=== PATIENT | female | born 2000 | race Caucasian/White ===

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

== ENCOUNTER 2020-01-02 16:38 | Emergency (ER) | payer OTHER, SELFPAY ==
--- OUTSIDE RECORDS SUMMARY | 2020-01-02 16:40 | XMS REPORT | Continuity of Care Document ---
:2000 Author Organization [facility] t Address [address] [place] [address] Dr. D[address] [place] [id number] Care Team Providers Name Role Phone Unavailable Unavailable Unavailable Problems This patient has no known problems. Allergies, Adverse Reactions, Alerts This patient has no known allergies or adverse reactions. Medications This patient has no known medications. Procedures This patient has no known procedures. Results This patient has no known results.
--- NOTE | 2020-01-02 17:21 | EDPHYS ---
Physician Documentation [facility] Name: Carmen Lea Age: 19 yrs Sex: Female : 2000 Arrival Date: 01/02/2020 Time: 16:41 Bed 25 Private MD: ED Physician Estevan Benavides HPI: 01/01 17:16 This 19 yrs old Female presents to ER via Ambulatory with complaints of Ear cp Pain. 17:16 The patient presents with pain, that is acute. The complaints affect the right ear and cp left ear. Onset: The symptoms/episode began/occurred yesterday. Associated signs and symptoms: Pertinent positives: sore throat, Pertinent negatives: fever, sinus trouble, vomiting. Severity of symptoms: in the emergency department the symptoms are unchanged despite home interventions. Historical: - Allergies: 16:49 No Known Allergies; ll1 - PSHx: 16:49 Appendectomy; ll1 - Immunization history:: Flu vaccine is not up to date. - Social history:: Smoking status: Patient denies any tobacco usage or history of. Patient/guardian denies using alcohol, street drugs. ROS: 17:17 Constitutional: Negative for body aches, chills, fever, poor PO intake. cp 17:17 ENT: Positive for ear pain, sore throat, Negative for drainage from ear(s), sinus congestion, difficulty swallowing, difficulty handling secretions. 17:17 Respiratory: Negative for cough, shortness of breath, wheezing. 17:17 Abdomen/GI: Negative for abdominal pain, nausea, vomiting, and diarrhea. 17:17 All other systems are negative. Exam: 17:18 Head/Face: Normocephalic, atraumatic. cp 17:18 Constitutional: The patient appears in no acute distress, alert, awake, non-toxic, well developed, well nourished. 17:18 Eyes: Periorbital structures: appear normal, Conjunctiva: normal, no exudate, no injection, Lids and lashes: appear normal, bilaterally. 17:18 ENT: External ear(s): are unremarkable, Ear canal(s): are normal, clear, TM's: bulging, is not appreciated, bilaterally, erythema, that is mild, bilaterally, Nose: is normal, Mouth: Lips: moist, Oral mucosa: moist, Posterior pharynx: Tonsils: bilaterally enlarged, with erythema, with exudate, Uvula: midline, erythema, that is mild. 17:18 Neck: ROM/movement: is normal, is supple, no meningismus, no nuchal rigidity. 17:18 Chest/axilla: Inspection: normal. 17:18 Cardiovascular: Rate: tachycardic. cp 17:18 Respiratory: the patient does not display signs of respiratory distress, Respirations: normal. 17:18 Abdomen/GI: Exam negative for discomfort, distension, guarding, Inspection: abdomen appears normal. Vital Signs: 16:47 BP 142 / 87; Pulse 100; Resp 18; Temp 99.5; Pulse Ox 98% ; Pain 7/10; ll1 MDM: 17:08 Patient medically screened. cp 17:18 Differential diagnosis: otitis media, otitis externa, tonsillitis, tonsillar abscess. cp 17:19 Data reviewed: vital signs, nurses notes, and as a result, I will discharge patient. cp 17:20 Counseling: I had a detailed discussion with the patient and/or guardian regarding: the cp historical points, exam findings, and any diagnostic results supporting the discharge/admit diagnosis, to return to the emergency department if symptoms worsen or persist or if there are any questions or concerns that arise at home. Administered Medications: No medications were administered Disposition: 17:30 Chart complete. cp 18:03 Co-signature as Attending Physician, Estevan Benavides MD I agree with the assessment and kdr plan of care. Disposition: 01/02/20 17:20 Discharged to Home. Impression: Acute tonsillitis, Otitis media, unspecified, bilateral. - Condition is Stable. - Discharge Instructions: Tonsillitis. - Prescriptions for Biaxin 500 mg Oral Tablet - take 1 tablet by ORAL route every 12 hours for 10 days; 20 tablet. Ibuprofen 800 mg Oral Tablet - take 1 tablet by ORAL route every 8 hours As needed take with food; 30 tablet. - Medication Reconciliation Form, Thank You Letter, Antibiotic Education, Prescription Opioid Use form. - Follow up: Private Physician; When: 1 - 2 days; Reason: Worsening of condition. - Problem is new. - Symptoms are unchanged. Signatures: Estevan Benavides MD MD [facility] Thad Tyler PA PA cp Magui Guzman RN RN Doretha Wu RN RN ll1 Corrections: (The following items were deleted from the chart) 17:27 17:20 01/02/2020 17:20 Discharged to Home. Impression: Acute tonsillitis; Otitis media, hb unspecified, bilateral. Condition is Stable. Forms are Medication Reconciliation Form, Thank You Letter, Antibiotic Education, Prescription Opioid Use. Follow up: Private Physician; When: 1 - 2 days; Reason: Worsening of condition. Problem is new. Symptoms are unchanged. cp
--- NOTE | 2020-01-02 17:21 | ER ---
Nurse's Notes [facility] Name: Carmen Lea Age: 19 yrs Sex: Female : 2000 Arrival Date: 01/02/2020 Time: 16:41 Bed 25 Private MD: Diagnosis: Acute tonsillitis;Otitis media, unspecified, bilateral Presentation: 01/01 16:47 Chief complaint: Patient states: Left ear pain since yesterday. No known fever, no ll1 drainage. Right ear pain started today. Coronavirus screen: Client denies travel out of the [place] in the last 14 days. At this time, the client does not indicate any symptoms associated with coronavirus-19. Ebola Screen: Patient denies travel to an Ebola-affected area in the 21 days before illness onset. Initial Sepsis Screen: Does the patient meet any 2 criteria? HR > 90 bpm. Risk Assessment: Do you want to hurt yourself or someone else? Patient reports no desire to harm self or others. Onset of symptoms was January 01, 2020. 16:47 Method Of Arrival: Ambulatory ll1 16:47 Acuity: LORENA 4 ll1 Historical: - Allergies: 16:49 No Known Allergies; ll1 - PSHx: 16:49 Appendectomy; ll1 - Immunization history:: Flu vaccine is not up to date. - Social history:: Smoking status: Patient denies any tobacco usage or history of. Patient/guardian denies using alcohol, street drugs. Screenin:14 Abuse screen: Denies threats or abuse. Denies injuries from another. Nutritional hb screening: No deficits noted. Tuberculosis screening: No symptoms or risk factors identified. Fall Risk None identified. Assessment: 17:14 General: Appears in no apparent distress. Behavior is calm, cooperative. Pain: Pain hb currently is 7 out of 10 on a pain scale. Neuro: Level of Consciousness is awake, alert, obeys commands, Oriented to person, place, time, situation. Cardiovascular: Capillary refill < 3 seconds Patient's skin is warm and dry. Respiratory: Respiratory effort is even, unlabored, Respiratory pattern is regular, symmetrical. GI: No signs and/or symptoms were reported involving the gastrointestinal system. : No signs and/or symptoms were reported regarding the genitourinary system. EENT: Reports pain since left ear pain. Derm: Skin is pink, warm \T\ dry. Musculoskeletal: No signs and/or symptoms reported regarding the musculoskeletal system. Vital Signs: 16:47 BP 142 / 87; Pulse 100; Resp 18; Temp 99.5; Pulse Ox 98% ; Pain 7/10; ll1 ED Course: 16:41 Patient arrived in ED. ds1 16:44 Thad Tyler PA is PHCP. cp 16:44 Estevan Benavides MD is Attending Physician. cp 16:48 Triage completed. ll1 16:49 Arm band placed on. ll1 17:14 Patient has correct armband on for positive identification. Bed in low position. Call hb light in reach. 17:15 Magui Guzman, RN is Primary Nurse. hb 17:27 No provider procedures requiring assistance completed. Patient did not have IV access hb during this emergency room visit. Administered Medications: No medications were administered Outcome: 17:20 Discharge ordered by MD. cp 17:27 Discharged to home ambulatory. hb 17:27 Condition: stable 17:27 Discharge instructions given to patient, Instructed on discharge instructions, follow up and referral plans. medication usage, Demonstrated understanding of instructions, follow-up care, medications, Prescriptions given X 2. 17:27 Patient left the ED. hb Signatures: Loretta Pete ds1 Thad Tyler PA PA cp Magui Guzman, RN RN Doretha Wu RN RN ll1
== END 2020-01-02 17:27 | disposition home or self-care (01) ==
LOC: ER 16:38
DX: H66.93 Otitis media, unspecified, bilateral (principal); J03.90 Acute tonsillitis, unspecified
CPT/HCPCS: 99282

== ENCOUNTER 2020-02-17 14:15 | Emergency (ER) | payer OTHER, SELFPAY ==
--- OUTSIDE RECORDS SUMMARY | 2020-02-17 14:24 | XMS REPORT | Continuity of Care Document ---
:2000 Author Organization [facility] t Address [address] [place] [address] Dr. Doshi [address] [place] [id number] Care Team Providers Name Role Phone Unavailable Unavailable Unavailable Problems This patient has no known problems. Allergies, Adverse Reactions, Alerts This patient has no known allergies or adverse reactions. Medications This patient has no known medications. Procedures This patient has no known procedures. Results This patient has no known results.
--- NOTE | 2020-02-17 14:43 | EDPHYS ---
Physician Documentation [facility] Name: Carmen Lea Age: 19 yrs Sex: Female : 2000 Arrival Date: 02/17/2020 Time: 14:19 Bed 2 Private MD: Thad Delgado HPI: 02/16 14:39 This 19 yrs old Female presents to ER via Ambulatory with complaints of kb Stepped on nail. 14:39 Pt reports she stepped on a nail and needs a tetanus shot. Puncture wound noted to ball kb of right foot with no FB remaining. 14:41 The patient or guardian reports the patient has a suspected foreign body, of the ball kb of right foot. The reported likely foreign body is a nail. Onset: The symptoms/episode began/occurred just prior to arrival. Current symptoms: none. Treatment Prior to Arrival: removed. The patient has not experienced similar symptoms in the past. The patient has not recently seen a physician. Historical: - Allergies: 14:30 No Known Allergies; ll1 - PSHx: 14:30 Appendectomy; ll1 - Immunization history:: Last tetanus immunization: unknown, Flu vaccine is not up to date. - Social history:: Smoking status: Patient denies any tobacco usage or history of. ROS: 14:41 Constitutional: Negative for fever, chills, and weight loss, Cardiovascular: Negative kb for chest pain, palpitations, and edema, Respiratory: Negative for shortness of breath, cough, wheezing, and pleuritic chest pain, Abdomen/GI: Negative for abdominal pain, nausea, vomiting, diarrhea, and constipation, Back: Negative for injury and pain, MS/Extremity: Negative for injury and deformity, Neuro: Negative for headache, weakness, numbness, tingling, and seizure. 14:41 Skin: Positive for puncture, of the ball of right foot. Exam: 14:39 Constitutional: This is a well developed, well nourished patient who is awake, alert, kb and in no acute distress. Head/Face: Normocephalic, atraumatic. Chest/axilla: Normal chest wall appearance and motion. Nontender with no deformity. No lesions are appreciated. Cardiovascular: Regular rate and rhythm with a normal S1 and S2. No gallops, murmurs, or rubs. Normal PMI, no JVD. No pulse deficits. Respiratory: Lungs have equal breath sounds bilaterally, clear to auscultation and percussion. No rales, rhonchi or wheezes noted. No increased work of breathing, no retractions or nasal flaring. Abdomen/GI: Soft, non-tender, with normal bowel sounds. No distension or tympany. No guarding or rebound. No evidence of tenderness throughout. MS/ Extremity: Pulses equal, no cyanosis. Neurovascular intact. Full, normal range of motion. Neuro: Awake and alert, GCS 15, oriented to person, place, time, and situation. Cranial nerves II-XII grossly intact. Motor strength 5/5 in all extremities. Sensory grossly intact. Cerebellar exam normal. Normal gait. 14:39 Skin: injury, puncture(s), that are superficial, of the ball of right foot. Vital Signs: 14:29 BP 131 / 63; Pulse 78; Resp 17; Temp 97.4; Pulse Ox 99% ; Weight 117.93 kg; Height 5 ll1 ft. 8 in. (172.72 cm); Pain 2/10; 14:29 Body Mass Index 39.53 (117.93 kg, 172.72 cm) ll1 MDM: 14:31 Patient medically screened. kb 14:35 Data reviewed: vital signs, nurses notes. Data interpreted: Pulse oximetry: on room air kb is 99 %. Interpretation: normal. Counseling: I had a detailed discussion with the patient and/or guardian regarding: the historical points, exam findings, and any diagnostic results supporting the discharge/admit diagnosis, the need for outpatient follow up, a family practitioner, to return to the emergency department if symptoms worsen or persist or if there are any questions or concerns that arise at home. 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 Exp: em 07/13/2022. Lot #: [id number]. } Route: IM; Site: left deltoid; 14:54 Follow up: Response: Medication administered at discharge. em Disposition: 02/17/20 14:42 Discharged to Home. Impression: Puncture wound without foreign body of foot. - Condition is Stable. - Discharge Instructions: Puncture Wound, [id number]. - Medication Reconciliation Form, Thank You Letter, Antibiotic Education, Prescription Opioid Use form. - Follow up: Emergency Department; When: As needed; Reason: Worsening of condition. Follow up: Private Physician; When: 2 - 3 days; Reason: Recheck today's complaints, Continuance of care, Re-evaluation by your physician. Addendum: 02/18/2020 18:03 Co-signature as Attending Physician, Thad Burton MD I agree with the assessment and c hua plan of care. Signatures: Dilcia Guillaume, ZOO DIRECTOR-C ZOO DIRECTOR-Thad Meyers MD MD cha Munoz, Edgar RN RN Doretha Kenney RN RN ll1 Corrections: (The following items were deleted from the chart) 02/16 14:54 14:42 02/17/2020 14:42 Discharged to Home. Impression: Puncture wound without foreign em body of foot. Condition is Stable. Forms are Medication Reconciliation Form, Thank You Letter, Antibiotic Education, Prescription Opioid Use. Follow up: Emergency Department; When: As needed; Reason: Worsening of condition. Follow up: Private Physician; When: 2 - 3 days; Reason: Recheck today's complaints, Continuance of care, Re-evaluation by your physician. kb
--- NOTE | 2020-02-17 14:43 | ER ---
Nurse's Notes [facility] Name: Carmen Lea Age: 19 yrs Sex: Female : 2000 Arrival Date: 02/17/2020 Time: 14:19 Bed 2 Private MD: Diagnosis: Puncture wound without foreign body of foot Presentation: 02/16 14:29 Chief complaint: Patient states: Nail went through her croc and punctured her right ll1 foot. No active bleeding. PMS intact. Coronavirus screen: Client denies travel out of the [place] in the last 14 days. At this time, the client does not indicate any symptoms associated with coronavirus-19. Ebola Screen: Patient denies travel to an Ebola-affected area in the 21 days before illness onset. Initial Sepsis Screen: Does the patient meet any 2 criteria? No. Patient's initial sepsis screen is negative. Does the patient have a suspected source of infection? Yes: Skin breakdown/wound. Risk Assessment: Do you want to hurt yourself or someone else? Patient reports no desire to harm self or others. Onset of symptoms was February 17, 2020. 14:29 Method Of Arrival: Ambulatory [facility] 14:29 Acuity: LORENA 4 ll1 Historical: - Allergies: 14:30 No Known Allergies; ll1 - PSHx: 14:30 Appendectomy; ll1 - Immunization history:: Last tetanus immunization: unknown, Flu vaccine is not up to date. - Social history:: Smoking status: Patient denies any tobacco usage or history of. Screenin:45 Abuse screen: Denies threats or abuse. Nutritional screening: No deficits noted. em Tuberculosis screening: No symptoms or risk factors identified. Fall Risk None identified. Assessment: 14:45 General: Appears in no apparent distress. comfortable, Behavior is calm, cooperative, em appropriate for age. Pain: Complains of pain in ball of right foot Pain currently is 2 out of 10 on a pain scale. Pain began 2 hours ago. Neuro: Level of Consciousness is awake, alert, obeys commands, Oriented to person, place, time, situation, Appropriate for age. Cardiovascular: Capillary refill < 3 seconds Patient's skin is warm and dry. Respiratory: Airway is patent Respiratory effort is even, unlabored, Respiratory pattern is regular, symmetrical. GI: Abdomen is round non-distended. Derm: Skin is intact, is healthy with good turgor, Skin is pink, warm \T\ dry. Musculoskeletal: Capillary refill < 3 seconds, Range of motion: intact in all extremities. Vital Signs: 14:29 BP 131 / 63; Pulse 78; Resp 17; Temp 97.4; Pulse Ox 99% ; Weight 117.93 kg; Height 5 ll1 ft. 8 in. (172.72 cm); Pain 2/10; 14:29 Body Mass Index 39.53 (117.93 kg, 172.72 cm) ll1 ED Course: 14:19 Patient arrived in ED. mr 14:20 Dilcia Guillaume FNP-C [facility]. kb 14:20 Thad Burton MD is Attending Physician. kb 14:30 Triage completed. ll1 14:31 Arm band placed on Patient placed. ll1 14:33 Rakesh Barrett, RN is Primary Nurse. em 14:45 Patient has correct armband on for positive identification. Call light in reach. em 14:52 No provider procedures requiring assistance completed. Patient did not have IV access em during this emergency room visit. 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 Exp: em 07/13/2022. Lot #: [id number]. } Route: IM; Site: left deltoid; 14:54 Follow up: Response: Medication administered at discharge. em Outcome: 14:42 Discharge ordered by MD. kb 14:52 Discharged to home ambulatory. em 14:52 Condition: good 14:52 Discharge instructions given to patient, Instructed on discharge instructions, follow up and referral plans. Demonstrated understanding of instructions, follow-up care. 14:54 Patient left the ED. em Signatures: Dilcia Guillaume FNP-C FNP-Ckb Alice Cooper mr Rakesh Barrett, RN RN em Doretha Wu RN RN [facility]
[2020-02-17] MEDS ORDERED: TETANUS & DIPHTHERIA TOX,ADULT 0.5 ML VIAL ONE (14:54)
[2020-02-17 14:59] VITALS: BP 131/63; TEMP 97.4; O2SAT 99
== END 2020-02-17 14:54 | disposition home or self-care (01) ==
LOC: ER 14:15
DX: S91.331A Puncture wound without foreign body, right foot, initial encounter (principal); W45.0XXA Nail entering through skin, initial encounter; Y93.9 Activity, unspecified; Y92.9 Unspecified place or not applicable; Z23 Encounter for immunization
CPT/HCPCS: 90471; 90714; 99283

== ENCOUNTER 2020-08-27 11:10 | Emergency (ER) | payer SELFPAY ==
--- OUTSIDE RECORDS SUMMARY | 2020-08-27 11:12 | XMS REPORT | Continuity of Care Document ---
:2000 Author Organization [facility] t Address [address] [place] [address] Dr. D[address] [place] [id number] Care Team Providers Name Role Phone Unavailable Unavailable Unavailable Problems This patient has no known problems. Allergies, Adverse Reactions, Alerts This patient has no known allergies or adverse reactions. Medications This patient has no known medications. Procedures This patient has no known procedures. Results This patient has no known results.
[2020-08-27 16:07] LABS: Absolute Lymphocytes (CBC) 0.9 K/uL (0.7-4.9); Basophils % 0.2 % (0-1.3); Hematocrit 38.5 % (36.0-45.0); Lymphocytes % 6.4 % (15.3-44.8); RBC Red Blood Cell Count 4.79 M/uL (3.86-4.86)
[2020-08-27 16:20] LABS: ALT/SGPT 35 U/L (12-78); AST/SGOT 15 U/L (15-37); Albumin 4.2 g/dL (3.4-5.0); Alkaline Phosphatase 78 U/L (45-117); BUN Blood Urea Nitrogen 8 mg/dL (7-18); Bicarbonate 25 mmol/L (21-32); Bilirubin Direct < 0.1 mg/dL (0-0.2); Bilirubin Total 0.4 mg/dL (0.2-1.0); Glucose Level 115 mg/dL (74-106); Lipase 48 U/L (73-393); Potassium 3.8 mmol/L (3.5-5.1); Protein, Total 8.6 g/dL (6.4-8.2); Sodium Level 137 mmol/L (136-145)
[2020-08-27 16:21] LABS: Urine Blood 3+ (Negative); Urine Glucose NEGATIVE (Negative); Urine Protein 1+ (Negative); Urine Specific Gravity 1.025 (1.005-1.030); Urine Specific Gravity/Preg 1.025 (1.005-1.030)
[2020-08-27] MEDS ORDERED: ONDANSETRON 4 MG/2 ML VIAL ONE (16:28)
[2020-08-27] MEDS ORDERED: NA CHLORIDE 0.9% 1,000 ML ONE (16:28)
--- NOTE | 2020-08-27 18:06 | RAD REPORT ---
EXAM DESCRIPTION: CT - Abdomen Pelvis W Contrast - 08/27/2020 5:47 pm CLINICAL HISTORY: Abdominal pain COMPARISON: 2019 TECHNIQUE: Computed axial tomography of the abdomen pelvis was obtained. 100 cc Isovue-300 was admin istered intravenously. Oral contrast was not requested which limits evaluation of bowel. All CT scans are performed using dose optimization technique as appropriate and may include automated exposure control or mA/KV adjustment according to patient size. FINDINGS: The liver, spleen, pancreas, adrenal and kidneys appear unremarkable. There is no evidence of diverticulitis. Appendectomy Calcified lung granulomas IMPRESSION: No acute abnormality is displayed.
--- NOTE | 2020-08-27 18:45 | EDPHYS ---
Physician Documentation [facility] Name: Carmen Lea Age: 20 yrs Sex: Female : 2000 Arrival Date: 08/27/2020 Time: 11:18 Bed 22 Private MD: ED Physician Shade Abbott HPI: 08/27 15:34 This 20 yrs old Female presents to ER via Ambulatory with complaints of jmm Abdominal Pain. 15:34 The patient presents with abdominal pain. Onset: The symptoms/episode began/occurred jmm today. The symptoms do not radiate. Associated signs and symptoms: Pertinent positives: nausea and vomiting, diarrhea. The symptoms are described as achy. The patient has not experienced similar symptoms in the past. Historical: - Allergies: 11:44 No Known Allergies; ll1 - PMHx: 11:44 None; ll1 - PSHx: 11:44 Appendectomy; ll1 - Immunization history:: Client reports having NOT received the Covid vaccine. Flu vaccine is not up to date. - Social history:: Smoking status: Patient denies any tobacco usage or history of. ROS: 15:34 Constitutional: Negative for fever, chills, and weight loss, Eyes: Negative for injury, jmm pain, redness, and discharge, ENT: Negative for injury, pain, and discharge, Neck: Negative for injury, pain, and swelling, Cardiovascular: Negative for chest pain, palpitations, and edema, Respiratory: Negative for shortness of breath, cough, wheezing, and pleuritic chest pain. 15:34 Abdomen/GI: Positive for abdominal pain, nausea and vomiting, diarrhea. 15:34 All other systems are negative. Exam: 15:34 Constitutional: This is a well developed, well nourished patient who is awake, alert, jmm and in no acute distress. Head/Face: atraumatic. Eyes: EOMI, no conjunctival erythema appreciated ENT: Moist Mucus Membranes Neck: Trachea midline, Supple Chest/axilla: Normal chest wall appearance and motion. Cardiovascular: Regular rate and rhythm. No edema appreciated Respiratory: Normal respirations, no respiratory distress appreciated 15:34 Back: Normal ROM Skin: General appearance color normal MS/ Extremity: Moves all extremities, no obvious deformities appreciated, no edema noted to the lower extremities Neuro: Awake and alert, normal gait Psych: Behavior is normal, Mood is normal, Patient is cooperative and pleasant 15:34 Abdomen/GI: Inspection: abdomen appears normal, Bowel sounds: normal, Palpation: soft, nontender, in all quadrants. Vital Signs: 11:42 BP 130 / 81; Pulse 55; Resp 17; Temp 98.2; Pulse Ox 98% ; Weight 117.93 kg; Height 5 ll1 ft. 8 in. (172.72 cm); Pain 7/10; 17:52 Pulse 68; Resp 15; Pulse Ox 98% on R/A; Pain 0/10; ss 11:42 Body Mass Index 39.53 (117.93 kg, 172.72 cm) ll1 MDM: 15:34 Patient medically screened. [facility] 18:43 Data reviewed: vital signs, nurses notes. Counseling: I had a detailed discussion with janeen the patient and/or guardian regarding: the historical points, exam findings, and any diagnostic results supporting the discharge/admit diagnosis, lab results, radiology results, the need for outpatient follow up, to return to the emergency department if symptoms worsen or persist or if there are any questions or concerns that arise at home. ED course: Patient's symptoms alleviated in the ED. Patient given strict return precautions. Patient understood and agrees with the plan of care. . 08/27 15:41 Order name: Basic Metabolic Panel; Complete Time: 16:29 [facility] 08/27 15:41 Order name: CBC with Diff [facility] 08/27 15:41 Order name: Hepatic Function; Complete Time: 16:29 [facility] 08/27 15:41 Order name: Lipase; Complete Time: 16:29 [facility] 08/27 15:42 Order name: COVID-19 : Document "Date of Symptom Onset" if Symptomatic. [facility] 08/27 15:41 Order name: IV Saline Lock; Complete Time: 16:03 [facility] 08/27 16:14 Order name: Urine Dipstick--Ancillary (enter results); Complete Time: 16:29 08/27 16:14 Order name: Urine --Ancillary (enter results); Complete Time: 16:29 08/27 16:29 Order name: CT Abd/Pelvis - IV Contrast Only; Complete Time: 18:26 [facility] 08/27 16:51 Order name: SARS-COV-2 RT PCR; Complete Time: 17:02 [facility] 08/27 15:41 Order name: Labs collected and sent; Complete Time: 16:03 [facility] 08/27 15:42 Order name: Urine Dipstick-Ancillary (obtain specimen); Complete Time: 16:15 [facility] 08/27 15:43 Order name: Urine Test (obtain specimen); Complete Time: 16:16 [facility] Administered Medications: 16:15 Drug: NS 0.9% 1000 ml Route: IV; Rate: 1 bolus; Site: left antecubital; ss 18:50 Follow up: IV Status: Completed infusion; IV Intake: 1000ml 16:15 Drug: Zofran (Ondansetron) 4 mg Route: IVP; Site: left antecubital; ss 17:53 Follow up: Response: No adverse reaction ss Disposition: 08/27/20 18:44 Discharged to Home. Impression: Vomiting, Diarrhea, unspecified. - Condition is Stable. - Discharge Instructions: Food Choices to Help Relieve Diarrhea, Adult, Diarrhea, Adult, Nausea and Vomiting, Adult. - Prescriptions for Zofran ODT 4 mg Oral tablet,disintegrating - place 1 tablet by TRANSLINGUAL route every 4-6 hours; 20 tablet. Bentyl 20 mg Oral Tablet - take 2 tablet by ORAL route every 6 hours As needed; 40 tablet. - Medication Reconciliation Form, Thank You Letter, Antibiotic Education, Prescription Opioid Use form. - Follow up: Private Physician; When: 2 - 3 days; Reason: Recheck today's complaints, Continuance of care, Re-evaluation by your physician. Addendum: 08/29/2020 10:04 Co-signature as Attending Physician, Shade Abbott MD I agree with the assessment and t w4 plan of care. Signatures: Dispatcher [employer] [facility] Jimmy Max PA PA jmm Smirch, Shelby, RN RN ss Shade Abbott MD MD tw4 Doretha Wu RN RN ll1 Corrections: (The following items were deleted from the chart) 08/27 16:11 15:43 CORONAVIRUS ordered. EDMO EDMS 17:19 17:06 Abdomen ordered. EDMO EDMS 18:51 18:44 08/27/2020 18:44 Discharged to Home. Impression: Vomiting; Diarrhea, unspecified. ss Condition is Stable. Forms are Medication Reconciliation Form, Thank You Letter, Antibiotic Education, Prescription Opioid Use. Follow up: Private Physician; When: 2 - 3 days; Reason: Recheck today's complaints, Continuance of care, Re-evaluation by your physician. janeen
--- NOTE | 2020-08-27 18:45 | ER ---
Nurse's Notes [facility] Name: Carmen Lea Age: 20 yrs Sex: Female : 2000 Arrival Date: 08/27/2020 Time: 11:18 Bed 22 Private MD: Diagnosis: Vomiting;Diarrhea, unspecified Presentation: 08/27 11:42 Chief complaint: Patient states: Upper abd pain with N/V/D for 1 day. No fever. ll1 Coronavirus screen: Client denies travel out of the [place] in the last 14 days. At this time, the client does not indicate any symptoms associated with coronavirus-19. Coronavirus screen: cough unrelated to allergies, runny nose, Client presents with at least one sign or symptom that may indicate coronavirus-19. Standard/surgical mask placed on the client. Ebola Screen: Patient denies travel to an Ebola-affected area in the 21 days before illness onset. Initial Sepsis Screen: Does the patient meet any 2 criteria? No. Patient's initial sepsis screen is negative. Does the patient have a suspected source of infection? Yes: Acute abdominal pain. Risk Assessment: Do you want to hurt yourself or someone else? Patient reports no desire to harm self or others. Onset of symptoms was August 27, 2020. 11:42 Method Of Arrival: Ambulatory ll1 11:42 Acuity: LORENA 3 ll1 Historical: - Allergies: 11:44 No Known Allergies; ll1 - PMHx: 11:44 None; ll1 - PSHx: 11:44 Appendectomy; ll1 - Immunization history:: Client reports having NOT received the Covid vaccine. Flu vaccine is not up to date. - Social history:: Smoking status: Patient denies any tobacco usage or history of. Screenin:06 Abuse screen: Denies threats or abuse. Denies injuries from another. Nutritional ss screening: No deficits noted. Tuberculosis screening: Never had TB. Fall Risk None identified. Assessment: 15:15 General: Appears in no apparent distress. comfortable, Behavior is calm, cooperative. ss Pain: Complains of pain in left upper quadrant Pain currently is 7 out of 10 on a pain scale. Quality of pain is described as crampy, Pain began this morning Is intermittent. Neuro: Level of Consciousness is awake, alert, obeys commands, Oriented to person, place, time, situation. Respiratory: Airway is patent Respiratory effort is even, unlabored, Respiratory pattern is regular, symmetrical. GI: Abdomen is non-distended, Bowel sounds present X 4 quads. Abd is soft and non tender X 4 quads. Reports. : Denies burning with urination, urinary frequency. EENT: Nares are clear Oral mucosa is moist. Derm: Skin is pink, warm \T\ dry. normal. Musculoskeletal: Circulation, motion, and sensation intact. Range of motion: intact in all extremities, Swelling absent. 16:15 Reassessment: No changes from previously documented assessment. Patient is alert, ss oriented x 3, equal unlabored respirations, skin warm/dry/pink. 17:40 Reassessment: Patient appears in no apparent distress at this time. Patient and/or ss family updated on plan of care and expected duration. Pain level reassessed. Pt is back from CT at this time. Awaiting results. 17:52 Reassessment: Patient appears in no apparent distress at this time. Patient and/or ss family updated on plan of care and expected duration. Pain level reassessed. Patient is alert, oriented x 3, equal unlabored respirations, skin warm/dry/pink. Patient denies pain at this time. Patient states feeling better. Patient states symptoms have improved. Vital Signs: 11:42 BP 130 / 81; Pulse 55; Resp 17; Temp 98.2; Pulse Ox 98% ; Weight 117.93 kg; Height 5 ll1 ft. 8 in. (172.72 cm); Pain 7/10; 17:52 Pulse 68; Resp 15; Pulse Ox 98% on R/A; Pain 0/10; ss 11:42 Body Mass Index 39.53 (117.93 kg, 172.72 cm) ll1 ED Course: 11:18 Patient arrived in ED. ds1 11:44 Triage completed. ll1 11:44 Arm band placed on. ll1 15:05 Jimmy Max PA is PHCP. [facility] 15:05 Shade Abbott MD is Attending Physician. [facility] 15:06 Azucena Her, BOO is Primary Nurse. ss 15:06 Patient has correct armband on for positive identification. Bed in low position. Call ss light in reach. 15:50 Initial lab(s) drawn, by me, sent to lab. COVID swab sent to lab. Inserted saline lock: jp3 20 gauge in left antecubital area, using aseptic technique. Blood collected. 17:28 CT Abd/Pelvis - IV Contrast Only In Process Unspecified. EDMS 18:50 No provider procedures requiring assistance completed. IV discontinued, intact, ss bleeding controlled, No redness/swelling at site. Pressure dressing applied. Administered Medications: 16:15 Drug: NS 0.9% 1000 ml Route: IV; Rate: 1 bolus; Site: left antecubital; ss 18:50 Follow up: IV Status: Completed infusion; IV Intake: 1000ml ss 16:15 Drug: Zofran (Ondansetron) 4 mg Route: IVP; Site: left antecubital; ss 17:53 Follow up: Response: No adverse reaction ss Intake: 18:50 IV: 1000ml; Total: 1000ml. ss Outcome: 18:44 Discharge ordered by . m 18:50 Discharged to home ambulatory. ss 18:50 Condition: improved 18:50 Discharge instructions given to patient, Instructed on discharge instructions, follow up and referral plans. medication usage, Demonstrated understanding of instructions, follow-up care, medications, Prescriptions given X 2. 18:51 Patient left the ED. ss Signatures: Dispatcher [employer] EDMS Jimmy Mxa PA PA jmm Sanford, Demi ds1 Azucena Her, BOO RN Philip Toscano jp3 Doretha Wu RN RN ll1
[2020-08-27 19:01] VITALS: BP 130/81; TEMP 98.2; O2SAT 98
[2020-08-27 19:06] LABS: Blood Morphology Comment NOTED (NOT SEEN); Platelet Estimate ADEQ; White Blood Cell Scan OK (OK)
[2020-08-27 19:07] LABS: Anisocytosis 1+; Poikilocytosis 1+
== END 2020-08-27 18:51 | disposition home or self-care (01) ==
LOC: ER 11:10
DX: R19.7 Diarrhea, unspecified (principal); Z20.822 Contact with and (suspected) exposure to COVID-19
CPT/HCPCS: 36415; 74177; 80048; 80076; 81003; 81025; 83690; 85025; 96361; 96374; 99284; J2405; J7030; Q9967; U0003

== ENCOUNTER 2021-01-05 14:24 | Emergency (ER) | payer SELFPAY ==
--- OUTSIDE RECORDS SUMMARY | 2021-01-05 14:26 | XMS REPORT | Continuity of Care Document ---
:2000 Author Organization [facility] t Address [address] [place] [address] Dr. Doshi [address] [place] [id number] Care Team Providers Name Role Phone Unavailable Unavailable Unavailable Problems This patient has no known problems. Allergies, Adverse Reactions, Alerts This patient has no known allergies or adverse reactions. Medications This patient has no known medications. Procedures This patient has no known procedures. Results This patient has no known results.
[2021-01-05 16:43] LABS: Urine Blood 2+ (Negative); Urine Glucose Negative (Negative); Urine Protein 1+ (Negative); Urine Specific Gravity 1.015 (1.005-1.030)
[2021-01-05] MEDS ORDERED: AZITHROMYCIN 250 MG TAB ONE (18:54)
[2021-01-05] MEDS ORDERED: WATER FOR INJ,STERILE 10 ML ONE (18:54)
[2021-01-05] MEDS ORDERED: CEFTRIAXONE 1000 MG/VIAL ONE (18:54)
[2021-01-05 19:14] LABS: Urine Amorphous Sediment 1+ /HPF (NONE SEEN); Urine Bacteria >50 /HPF (<20); Urine RBC >50 /HPF (NONE SEEN)
[2021-01-05 19:19] LABS: Urine Specific Gravity/Preg 1.015 (1.005-1.030)
--- NOTE | 2021-01-05 19:25 | ER ---
Nurse's Notes [facility] Name: Carmen Lae Age: 20 yrs Sex: Female : 2000 Arrival Date: 01/05/2021 Time: 14:28 Bed 14 Private MD: Diagnosis: Cervicitis Presentation: 01/05 14:50 Chief complaint: Patient states: is having some vaginal pains that feels like she put a iw tampon in wrong, mireille hurts to sit down, started last night and worse this morning , no injury , feels like there is something hard inside her but there is no way it can be a tampon, feels like there may be and abscess or cyst, feels the know inside her labia, has not had her cycle in a month. Coronavirus screen: At this time, the client does not indicate any symptoms associated with coronavirus-19. Ebola Screen: Patient negative for fever greater than or equal to 101.5 degrees Fahrenheit, and additional compatible Ebola Virus Disease symptoms Patient denies exposure to infectious person. Patient denies travel to an Ebola-affected area in the 21 days before illness onset. No symptoms or risks identified at this time. Initial Sepsis Screen: Does the patient meet any 2 criteria? No. Patient's initial sepsis screen is negative. Does the patient have a suspected source of infection? No. Patient's initial sepsis screen is negative. Risk Assessment: Do you want to hurt yourself or someone else? Patient reports no desire to harm self or others. Onset of symptoms was January 05, 2021. 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 - Social history:: Smoking status: . Screenin:26 Abuse screen: Denies threats or abuse. Denies injuries from another. Nutritional iw screening: No deficits noted. Tuberculosis screening: No symptoms or risk factors identified. 19:12 Fall Risk None identified. ss Assessment: 16:25 General: Appears in no apparent distress. Behavior is calm, cooperative. Pain: iw Complains of pain in groin. Neuro: Level of Consciousness is awake, alert, obeys commands, Oriented to person, place, time, situation, Moves all extremities. Full function. Respiratory: Respiratory effort is even, unlabored, Respiratory pattern is regular. 19:12 Reassessment: awaiting swab results prior to disposition. Pt has no complaints at this ss time. Vital Signs: 14:50 BP 131 / 62; Pulse 85; Resp 16; Temp 97.4; Pulse Ox 100% ; Weight 107.95 kg; Height 5 iw ft. 8 in. (172.72 cm); Pain 8/10; 14:50 Body Mass Index 36.19 (107.95 kg, 172.72 cm) iw ED Course: 14:28 Patient arrived in ED. ds1 14:53 Triage completed. iw 14:54 Arm band placed on. iw 16:21 Francheska Delacruz is Primary Nurse. kh1 16:25 Nilson Irvin NP is PHCP. pm1 16:25 Thad Burton MD is Attending Physician. pm1 18:21 Assist provider with pelvic exam: Set up pelvic tray. Performed by Nilson Irvin NP Specimens sent to lab. Patient tolerated well. Patient did not have IV access during this emergency room visit. 19:12 Patient has correct armband on for positive identification. Bed in low position. Call ss light in reach. Administered Medications: 18:39 Drug: Rocephin (cefTRIAXone) 1 grams Route: IM; Site: right gluteus; iw 19:12 Follow up: Response: No adverse reaction ss 18:39 Drug: AZITHromycin 1 grams Route: PO; iw 19:12 Follow up: Response: No adverse reaction ss Outcome: 19:25 Discharge ordered by . pm1 19:32 Discharged to home ambulatory. ss 19:32 Condition: good 19:32 Discharge instructions given to patient, Instructed on discharge instructions, follow up and referral plans. medication usage, Demonstrated understanding of instructions, follow-up care. 19:33 Patient left the ED. Signatures: Loretta Pete ds1 Jessica Howell RN RN Azucena Her RN RN Nilson Irvin NP UNIVERSITY LECTURER pm1 Francheska Delacruz [facility] Corrections: (The following items were deleted from the chart) 14:54 14:50 Pulse 85bpm; Resp 16bpm; Pulse Ox 100%; Temp 97.4F; 107.95 kg; Height 5 ft. 8 iw in.; BMI: 36.1; Pain 8/10; iw
--- NOTE | 2021-01-05 19:25 | EDPHYS ---
Physician Documentation [facility] Name: Carmen Lea Age: 20 yrs Sex: Female : 2000 Arrival Date: 01/05/2021 Time: 14:28 Bed 14 Private MD: ED Physician Thad Burton HPI: 01/05 16:36 This 20 yrs old Female presents to ER via Ambulatory with complaints of pm1 Vaginal Pain. 16:36 The patient presents with Vaginal pain and discharge. pm1 16:36 Onset: The symptoms/episode began/occurred last night. Modifying factors: The symptoms pm1 are alleviated by nothing, the symptoms are aggravated by nothing. Associated signs and symptoms: Pertinent negatives: dysuria, fever, Abdominal pain. Severity of symptoms: in the emergency department the symptoms are actually worse. The patient is sexually active, reportedly has a single partner, does not use protection during intercourse. The patient has not experienced similar symptoms in the past. The patient has not recently seen a physician. Patient reports mild discharge for the past few days. While in the ER waiting room, when she went to the restroom reported more discharge. Patient reports sensation of foreign body like sensation to vaginal area. Patient reports pain is more prominent on right side, labial area. 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 - Social history:: Smoking status: . ROS: 16:36 Positive for vaginal discharge, Negative for urinary symptoms, pelvic pain, flank pm1 pain. 16:36 Constitutional: Negative for fever, chills, and weight loss, Cardiovascular: Negative for chest pain, palpitations, and edema, Respiratory: Negative for shortness of breath, cough, wheezing, and pleuritic chest pain, Abdomen/GI: Negative for abdominal pain, nausea, vomiting, diarrhea, and constipation, Back: Negative for injury and pain, MS/Extremity: Negative for injury and deformity, Skin: Negative for injury, rash, and discoloration. 16:36 All other systems are negative. Exam: 16:36 Constitutional: This is a well developed, well nourished patient who is awake, alert, pm1 and in no acute distress. Head/Face: Normocephalic, atraumatic. 16:36 Back: No spinal tenderness. No costovertebral tenderness. Full range of motion. Skin: Warm, dry with normal turgor. Normal color with no rashes, no lesions, and no evidence of cellulitis. MS/ Extremity: Pulses equal, no cyanosis. Neurovascular intact. Full, normal range of motion. 16:36 Eyes: Exam is negative for acute changes, Extraocular movements: no acute changes, Conjunctiva: no acute changes, no injection. 16:36 ENT: Exam is negative for acute changes, Mouth: Lips: normal, Oral mucosa: normal, pink and intact, moist. 16:36 Cardiovascular: Exam negative for acute changes, Rate: normal, Rhythm: regular, Pulses: no pulse deficits are appreciated. 16:36 Respiratory: Exam negative for acute changes, respiratory distress, shortness of breath. 16:36 Abdomen/GI: Exam negative for acute changes, Inspection: abdomen appears normal, Palpation: abdomen is soft and non-tender, in all quadrants. 16:36 Neuro: Exam negative for acute changes, Orientation: is normal, Mentation: is normal, Motor: is normal, moves all fours. 18:25 : Pelvic Exam: External exam: is normal, no appreciated Bartholin's cyst, no pm1 erythema, not excoriated, no evidence of foreign body, no lesions, no ulcerations, no warts seen, Speculum exam: cervicitis present, bimanual exam reveals normal findings, no cervical motion tenderness, no adnexa tenderness or masses bilaterally, discharge, yellow, Azucena RN Simulation Engineer. Vital Signs: 14:50 BP 131 / 62; Pulse 85; Resp 16; Temp 97.4; Pulse Ox 100% ; Weight 107.95 kg; Height 5 iw ft. 8 in. (172.72 cm); Pain 8/10; 14:50 Body Mass Index 36.19 (107.95 kg, 172.72 cm) iw MDM: 16:25 Patient medically screened. pm1 18:59 Data reviewed: vital signs. Data interpreted: Pulse oximetry: on room air is 100 %. pm1 Interpretation: normal. 19:23 Counseling: I had a detailed discussion with the patient and/or guardian regarding: the pm1 historical points, exam findings, and any diagnostic results supporting the discharge/admit diagnosis, lab results, the need for outpatient follow up, an OB/Gyne specialist, to return to the emergency department if symptoms worsen or persist or if there are any questions or concerns that arise at home. 19:23 ED course: Without any complaints of dysuria. Urine micro results likely result of pm1 contamination from vaginal discharge. Do not suspect UTI, likely cervicitis from sexual transmitted infection. Patient treated with Rocephin and azithromycin in the ER. And patient informed results for GC probe in 2 days. 01/05 16:43 Order name: Urine Microscopic Only; Complete Time: 19:18 pm1 01/05 16:43 Order name: Urine Dipstick-Ancillary [facility] 01/05 16:43 Order name: Urine --Ancillary (enter results); Complete Time: 19:23 eb 01/05 18:28 Order name: Wet Prep; Complete Time: 19:23 pm1 01/05 18:28 Order name: GC (GONORR/CHLAMYDIA) Probe [facility] 01/05 19:15 Order name: Urine Culture [facility] 01/05 16:30 Order name: Urine Dipstick-Ancillary (obtain specimen); Complete Time: 17:23 pm1 01/05 16:30 Order name: Urine Test (obtain specimen); Complete Time: 17:23 pm1 01/05 16:30 Order name: Pelvic Exam Setup; Complete Time: 17:23 pm1 Administered Medications: 18:39 Drug: Rocephin (cefTRIAXone) 1 grams Route: IM; Site: right gluteus; iw 19:12 Follow up: Response: No adverse reaction ss 18:39 Drug: AZITHromycin 1 grams Route: PO; iw 19:12 Follow up: Response: No adverse reaction ss Disposition: 01/06 08:33 Co-signature as Attending Physician, Thad Burton MD I agree with the assessment and jagjit plan of care. Disposition Summary: 01/05/21 19:25 Discharge Ordered Location: Home pm1 Problem: new pm1 Symptoms: have improved pm1 Condition: Stable pm1 Diagnosis - Cervicitis pm1 Followup: pm1 - With: Emergency Department - When: As needed - Reason: Worsening of condition Followup: pm1 - With: Private Physician - When: 2 - 3 days - Reason: Recheck today's complaints, Continuance of care, Re-evaluation by your physician Discharge Instructions: - Discharge Summary Sheet pm1 - Cervicitis pm1 Forms: - Medication Reconciliation Form pm1 - Thank You Letter pm1 - Antibiotic Education pm1 - Prescription Opioid Use pm1 Signatures: Dispatcher [employer] Thad Orta MD MD cha Williams, Irene, BOO RN iw Nilson Irvin NP ELEVATOR CONSTRUCTOR HYDRAULIC pm1 Azucena Her RN ss
[2021-01-05 19:40] VITALS: BP 131/62; TEMP 97.4; O2SAT 100
[2021-01-09 05:06] LABS: C.trachomatis RNA,TMA Detected (Not Detected)
== END 2021-01-05 19:33 | disposition home or self-care (01) ==
LOC: ER 14:24
DX: N72 Inflammatory disease of cervix uteri (principal)
CPT/HCPCS: 81003; 81015; 81025; 87086; 87088; 87210; 87490; 87590; 96372; 99283

== ENCOUNTER 2021-02-14 22:06 | Emergency (ER) | payer SELFPAY ==
--- NOTE | 2021-02-14 23:11 | EDPHYS ---
Physician Documentation [facility] Name: Carmen Lea Age: 20 yrs Sex: Female : 2000 Arrival Date: 02/14/2021 Time: 22:11 Bed 12 Private MD: ED Physician René Ybarra HPI: 02/14 22:41 This 20 yrs old Female presents to ER via Wheelchair with complaints of Ankle pkl Injury, Ankle Swelling. 22:41 The patient presents with an injury, pain, that is acute. The complaints affect the pkl left ankle. Onset: The symptoms/episode began/occurred today. Context: resulted from a mis-step by the patient. Associated signs and symptoms: The patient has no apparent associated signs or symptoms. 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 - Social history:: Patient/guardian denies using alcohol, street drugs, IV drugs, caffeine, over the counter diet medications, tobacco products, Smoking status: Patient/guardian denies using tobacco products. ROS: 22:41 Eyes: Negative for injury, pain, redness, and discharge, ENT: Negative for injury, pkl pain, and discharge, Neck: Negative for injury, pain, and swelling, Cardiovascular: Negative for chest pain, palpitations, and edema, Respiratory: Negative for shortness of breath, cough, wheezing, and pleuritic chest pain, Abdomen/GI: Negative for abdominal pain, nausea, vomiting, diarrhea, and constipation, Back: Negative for injury and pain, : Negative for injury, bleeding, discharge, and swelling, Neuro: Negative for headache, weakness, numbness, tingling, and seizure. 22:41 MS/extremity: Positive for pain, swelling, tenderness, of the left ankle. Exam: 22:41 Head/Face: Normocephalic, atraumatic. Eyes: Pupils equal round and reactive to light, pkl extra-ocular motions intact. Lids and lashes normal. Conjunctiva and sclera are non-icteric and not injected. Cornea within normal limits. Periorbital areas with no swelling, redness, or edema. ENT: Nares patent. No nasal discharge, no septal abnormalities noted. Tympanic membranes are normal and external auditory canals are clear. Oropharynx with no redness, swelling, or masses, exudates, or evidence of obstruction, uvula midline. Mucous membranes moist. Neck: Trachea midline, no thyromegaly or masses palpated, and no cervical lymphadenopathy. Supple, full range of motion without nuchal rigidity, or vertebral point tenderness. No Meningismus. Chest/axilla: Normal chest wall appearance and motion. Nontender with no deformity. No lesions are appreciated. Cardiovascular: Regular rate and rhythm with a normal S1 and S2. No gallops, murmurs, or rubs. Normal PMI, no JVD. No pulse deficits. Respiratory: Lungs have equal breath sounds bilaterally, clear to auscultation and percussion. No rales, rhonchi or wheezes noted. No increased work of breathing, no retractions or nasal flaring. Abdomen/GI: Soft, non-tender, with normal bowel sounds. No distension or tympany. No guarding or rebound. No evidence of tenderness throughout. Back: No spinal tenderness. No costovertebral tenderness. Full range of motion. Skin: Warm, dry with normal turgor. Normal color with no rashes, no lesions, and no evidence of cellulitis. Neuro: Awake and alert, GCS 15, oriented to person, place, time, and situation. Cranial nerves II-XII grossly intact. Motor strength 5/5 in all extremities. Sensory grossly intact. Cerebellar exam normal. Normal gait. 22:41 Musculoskeletal/extremity: Extremities: grossly normal except: noted in the left ankle: pain, swelling, tenderness. Vital Signs: 22:30 BP 118 / 63; Pulse 88; Resp 20; Temp 99.0; Pulse Ox 99% on R/A; cc4 Procedures: 23:03 Splinting: Splint applied to left ankle using short leg posterior splint. applied by [facility] nurse. Examined by me, post splint application: neurovascular intact, 2+ distal pulses palpable, brisk capillary refill noted, Patient tolerated well. MDM: 22:28 Patient medically screened. pk 23:03 Data reviewed: vital signs, nurses notes, radiologic studies, plain films. [facility] 02/14 22:40 Order name: Ankle Left 3 View XRAY [facility] 02/14 23:12 Order name: Splint - Ankle: Posterior; Complete Time: 23:33 pk Administered Medications: No medications were administered Disposition Summary: 02/14/21 23:10 Discharge Ordered Location: Home pkl Problem: new pkl Symptoms: have improved pkl Condition: Stable pkl Diagnosis - Sprain left ankle pkl Followup: pkl - With: Kevin Oakley MD - When: 2 - 3 days - Reason: Re-evaluation by your physician Discharge Instructions: - Discharge Summary Sheet pkl Forms: - Medication Reconciliation Form pkl - Thank You Letter pkl - Antibiotic Education pkl - Work release form pkl - Prescription Opioid Use pkl Prescriptions: - Diclofenac Sodium 75 mg Oral tablet,delayed release (DR/EC) - take 1 tablet by ORAL route 2 times per day; 20 tablet; Refills: 0, Product pkl Selection Permitted Signatures: Dispatcher [employer] EDMS René Ybarra MD MD pkl Sonal Perkins RN RN cc4 Corrections: (The following items were deleted from the chart) 22:59 22:30 PSHx: Appendectomy; cc4 cc4 23:33 23:12 Crutches ordered. pkl cc4
--- NOTE | 2021-02-14 23:11 | ER ---
Nurse's Notes [facility] Name: Carmen Lea Age: 20 yrs Sex: Female : 2000 Arrival Date: 02/14/2021 Time: 22:11 Bed 12 Private MD: Diagnosis: Sprain left ankle Presentation: 02/14 22:30 Method Of Arrival: Wheelchair cc4 22:30 Chief complaint: Patient states: Reports wearing heels today at work \\T\\ "rolling" left cc4 ankle around noon today with increasing pain; reports pain left foot "8" at present time; small amt. edema noted left dorsal foot; palpable left pedal pulse; moving left toes upon command; dorsiflexing left foot with no difficulty upon command. Coronavirus screen: Vaccine status: Patient reports being unvaccinated. Client denies travel out of the [place] in the last 14 days. At this time, the client does not indicate any symptoms associated with coronavirus-19. Ebola Screen: Patient negative for fever greater than or equal to 101.5 degrees Fahrenheit, and additional compatible Ebola Virus Disease symptoms No symptoms or risks identified at this time. Onset of symptoms was February 14, 2021 at 12:00. 22:30 Acuity: LORENA 4 cc4 22:30 Initial Sepsis Screen: Does the patient meet any 2 criteria? No. Patient's initial cc4 sepsis screen is negative. Does the patient have a suspected source of infection? No. Patient's initial sepsis screen is negative. Risk Assessment: Do you want to hurt yourself or someone else? Patient reports no desire to harm self or others. Triage Assessment: 22:30 General: Appears in no apparent distress. Behavior is calm, cooperative. General: cc4 Appears in no apparent distress. Behavior is calm, cooperative. Pain: Complains of pain in left foot Pain does not radiate. Pain currently is 8 out of 10 on a pain scale. Quality of pain is described as sharp, Pain began 12:00 today. Is intermittent, lasting a few minutes. 22:30 Musculoskeletal: Swelling present in left foot Reports pain in left foot since . Pain cc4 is 8 out of 10 on a pain scale. 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 - Social history:: Patient/guardian denies using alcohol, street drugs, IV drugs, caffeine, over the counter diet medications, tobacco products, Smoking status: Patient/guardian denies using tobacco products. Screenin:30 Abuse screen: Denies threats or abuse. Nutritional screening: No deficits noted. cc4 Tuberculosis screening: No symptoms or risk factors identified. Fall Risk None identified. Assessment: 22:30 General: Appears in no apparent distress. Behavior is calm, cooperative. Pain: cc4 Complains of pain in left foot Pain does not radiate. Pain currently is 8 out of 10 on a pain scale. Quality of pain is described as sharp, Pain began Reports "rolling" left ankle/foot today \\T\\ noon \\T\\ work with increasing intermittent "sharp" pain throughout day; small amt. edema noted dorsum left foot; < 3 sec cap refill noted left toes; moving left toes with no difficulty; dorsiflexing left foot slowly. Vital Signs: 22:30 BP 118 / 63; Pulse 88; Resp 20; Temp 99.0; Pulse Ox 99% on R/A; cc4 ED Course: 22:11 Patient arrived in ED. ja2 22:28 René Ybarra MD is Attending Physician. pkl 22:30 Bed in low position. Call light in reach. Side rails up X 1. cc4 22:32 Sonal Perkins, BOO is Primary Nurse. cc4 22:45 Triage completed. cc4 22:53 Ankle Left 3 View XRAY Sent. cc4 22:53 Arm band placed on. cc4 22:56 Ankle Left 3 View XRAY In Process Unspecified. EDMS 23:00 No provider procedures requiring assistance completed. cc4 23:09 Kevin Oakley MD is Referral Physician. pkl 23:30 Patient did not have IV access during this emergency room visit. cc4 Administered Medications: No medications were administered Outcome: 22:30 Condition: good cc4 23:10 Discharge ordered by . pkl 23:25 Discharged to home via wheelchair. cc4 23:25 Condition: good 23:25 Discharge instructions given to patient, Instructed on discharge instructions, follow up and referral plans. medication usage, Demonstrated understanding of instructions, follow-up care, medications, Prescriptions given X 1. 23:51 Patient left the ED. cc4 Signatures: Dispatcher [employer] René Ortega MD MD pkl Alexander, Jessica ja2 Cooper, Christie, RN RN cc4 Corrections: (The following items were deleted from the chart) 22:59 22:30 PSHx: Appendectomy; cc4 cc4
[2021-02-14 23:56] VITALS: BP 118/63; TEMP 99; O2SAT 99
--- NOTE | 2021-02-15 08:38 | RAD REPORT ---
EXAM DESCRIPTION: RAD - Ankle Left 3 View - 02/14/2021 10:57 pm CLINICAL HISTORY: fall COMPARISON: No comparisons FINDINGS: Mild soft tissue swelling is evident. Small posterior calcaneal spur. No acute fracture se en.
== END 2021-02-14 23:51 | disposition home or self-care (01) ==
LOC: ER 22:06
DX: S93.402A Sprain of unspecified ligament of left ankle, initial encounter (principal); Z72.0 Tobacco use
CPT/HCPCS: 99283

== ENCOUNTER 2021-11-06 15:54 | Emergency (ER) | payer SELFPAY ==
[2021-11-06] MEDS ORDERED: dexAMETHasone 10 MG/ML VIAL ONE (17:47)
--- NOTE | 2021-11-06 17:55 | ER ---
Nurse's Notes [facility] Name: Carmen Lea Age: 21 yrs Sex: Female : 2000 Arrival Date: 11/06/2021 Time: 15:58 Bed 20 Private MD: Diagnosis: Rash and other nonspecific skin eruption Presentation: 11/06 16:06 Chief complaint: Patient states: she was at work and she started feeling a tightness in ap3 her lips. That is when she noticed her lips and other areas of her face were swelling and she was developing hives. Patient states she believes she is developing hives on her scalp as well. patient reports this has happened before but it has been a while. Coronavirus screen: At this time, the client does not indicate any symptoms associated with coronavirus-19. Ebola Screen: No symptoms or risks identified at this time. Onset: The symptoms/episode began/occurred suddenly, 1 hour(s) ago. Anaphylaxis evaluation, angioedema. Initial Sepsis Screen: Does the patient meet any 2 criteria? No. Patient's initial sepsis screen is negative. Does the patient have a suspected source of infection? No. Patient's initial sepsis screen is negative. Risk Assessment: Do you want to hurt yourself or someone else? Patient reports no desire to harm self or others. Onset of symptoms was November 06, 2021 at 15:00. Care prior to arrival: Medication(s) given: benadryl. 16:06 Method Of Arrival: Ambulatory ap3 16:06 Acuity: LORENA 3 ap3 Triage Assessment: 16:11 General: Appears in no apparent distress. Behavior is calm, cooperative, appropriate ap3 for age. Pain: Denies pain. Neuro: Level of Consciousness is awake, alert, obeys commands. Cardiovascular: Respiratory: Airway is patent Respiratory effort is even, unlabored, Respiratory pattern is regular, symmetrical. Derm:. Derm: Rash noted that is red, on face. Musculoskeletal: Swelling present in face and mouth. 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 - Social history:: Smoking status: Patient denies any tobacco usage or history of. Screenin:12 Abuse screen: Denies threats or abuse. Nutritional screening: No deficits noted. ap3 Tuberculosis screening: No symptoms or risk factors identified. Fall Risk None identified. Assessment: 17:00 General: Appears comfortable, Behavior is cooperative. Pain: Denies pain. Neuro: Level ww of Consciousness is awake, alert, obeys commands, Oriented to person, place, time, situation, Moves all extremities. Gait is steady. Cardiovascular: Capillary refill < 3 seconds Patient's skin is warm and dry. Respiratory: Airway is patent Respiratory effort is even, unlabored, Respiratory pattern is regular, symmetrical. GI: No signs and/or symptoms were reported involving the gastrointestinal system. : No signs and/or symptoms were reported regarding the genitourinary system. EENT: Eyes swelling present. lips swelling. Derm: No signs and/or symptoms reported regarding the dermatologic system. 18:20 Reassessment: Patient appears in no apparent distress at this time. No changes from ww previously documented assessment. Patient and/or family updated on plan of care and expected duration. Pain level reassessed. Patient is alert, oriented x 3, equal unlabored respirations, skin warm/dry/pink. Vital Signs: 16:06 BP 140 / 65; Pulse 97; Resp 17; Temp 97.7; Pulse Ox 100% ; Weight 108.86 kg; Height 5 ap3 ft. 8 in. (172.72 cm); 18:20 BP 123 / 54; Pulse 71; Resp 18; Pulse Ox 99% on R/A; ww 16:06 Body Mass Index 36.49 (108.86 kg, 172.72 cm) ap3 ED Course: 15:58 Patient arrived in ED. ja2 15:59 Jimmy Max PA is PHCP. [facility] 15:59 Thad Burton MD is Attending Physician. jmm 16:10 Triage completed. ap3 16:13 Arm band placed on right wrist. ap3 17:15 Patient has correct armband on for positive identification. Bed in low position. Call ww light in reach. Side rails up X 1. Pulse ox on. NIBP on. Warm blanket given. 17:30 Karla Muhammad, BOO is Primary Nurse. ww 18:21 No provider procedures requiring assistance completed. Patient did not have IV access ww during this emergency room visit. Administered Medications: 17:45 Drug: Decadron (dexamethasone) 10 mg Route: IM; Site: right gluteus; ww Outcome: 17:54 Discharge ordered by . janeen 18:21 Discharged to home ambulatory. ww 18:21 Condition: stable 18:21 Discharge instructions given to patient, Instructed on discharge instructions, follow up and referral plans. medication usage, safety practices, Demonstrated understanding of instructions, follow-up care, medications, Prescriptions given X 2. 18:24 Patient left the ED. ww Signatures: Jimmy Max PA PA jmm Prokisch, Amanda, BOO RN Nighat Rogers Whitney, RN RN ww
--- NOTE | 2021-11-06 17:55 | EDPHYS ---
Physician Documentation [facility] Name: Carmen Lea Age: 21 yrs Sex: Female : 2000 Arrival Date: 11/06/2021 Time: 15:58 Bed 20 Private MD: ED Physician Thad Burton HPI: 11/06 16:13 This 21 yrs old Female presents to ER via Ambulatory with complaints of Facial jmm Swelling, Hives. 16:13 The patient's rash thought to be caused by an unknown cause. The rash is located on the jmm face and mouth. Onset: The symptoms/episode began/occurred gradually. Associated signs and symptoms: Pertinent positives: swelling of lips, Pertinent negatives: fever, swelling of throat, swelling of tongue. This is a 21 year old female with no chronic medical conditions that presents to the ED with complaints of itching scalp and lip swelling beginning earlier today. Patient states taking benadryl with little relief. Denies sensation of throat swelling, denies vomiting. . 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 - Social history:: Smoking status: Patient denies any tobacco usage or history of. ROS: 16:13 Constitutional: Negative for fever, chills, and weight loss, Cardiovascular: Negative jmm for chest pain, palpitations, and edema, Respiratory: Negative for shortness of breath, cough, wheezing, and pleuritic chest pain. 16:13 Skin: Positive for rash. 16:13 All other systems are negative. Exam: 16:13 Constitutional: This is a well developed, well nourished patient who is awake, alert, jmm and in no acute distress. 16:13 Eyes: EOMI, no conjunctival erythema appreciated 16:13 Neck: Trachea midline, Supple Chest/axilla: Normal chest wall appearance and motion. Cardiovascular: Regular rate and rhythm. No edema appreciated Respiratory: Normal respirations, no respiratory distress appreciated Abdomen/GI: Non distended, soft Back: Normal ROM Skin: General appearance color normal MS/ Extremity: Moves all extremities, no obvious deformities appreciated, no edema noted to the lower extremities Neuro: Awake and alert Psych: Behavior is normal, Mood is normal, Patient is cooperative and pleasant 16:13 Constitutional: The patient appears in no acute distress, alert, awake. 16:13 Head/face: hives noted to the forehead. 16:13 ENT: Posterior pharynx: is normal, no pharyngeal edema appreciated. Vital Signs: 16:06 BP 140 / 65; Pulse 97; Resp 17; Temp 97.7; Pulse Ox 100% ; Weight 108.86 kg; Height 5 ap3 ft. 8 in. (172.72 cm); 18:20 BP 123 / 54; Pulse 71; Resp 18; Pulse Ox 99% on R/A; ww 16:06 Body Mass Index 36.49 (108.86 kg, 172.72 cm) ap3 MDM: 16:13 Patient medically screened. jagjit 17:52 Data reviewed: vital signs, nurses notes. Counseling: I had a detailed discussion with janeen the patient and/or guardian regarding: the historical points, exam findings, and any diagnostic results supporting the discharge/admit diagnosis, the need for outpatient follow up, to return to the emergency department if symptoms worsen or persist or if there are any questions or concerns that arise at home. ED course: Patient is alert and non toxic in appearance in the ED. No signs of resp distress. I do not suspect anaphylaxis. . Administered Medications: 17:45 Drug: Decadron (dexamethasone) 10 mg Route: IM; Site: right gluteus; ww Disposition Summary: 11/06/21 17:54 Discharge Ordered Location: Home [facility] Condition: Stable [facility] Diagnosis - Rash and other nonspecific skin eruption [facility] Followup: [facility] - With: Private Physician - When: 2 - 3 days - Reason: Recheck today's complaints, Continuance of care, Re-evaluation by your physician Discharge Instructions: - Discharge Summary Sheet janeen hartman Forms: - Medication Reconciliation Form minnie - Thank You Letter janeen - Antibiotic Education [facility] - Prescription Opioid Use [facility] Prescriptions: - Hydroxyzine HCl 25 mg Oral Tablet - take 1 tablet by ORAL route every 6 hours As needed; 30 tablet; Refills: 0, [facility] Product Selection Permitted - Prednisone 20 mg Oral Tablet - take 3 tablets by ORAL route once daily for 5 days; 15 tablet; Refills: 0, jmm Product Selection Permitted Signatures: Thad Burton MD MD cha Mickail, Joel, PA PA jmm Prokisch, Amanda RN RN ap3 Karla Muhammad RN RN ww
[2021-11-06 18:35] VITALS: TEMP 97.7
[2021-11-06 18:37] VITALS: BP 123/54; O2SAT 99
== END 2021-11-06 18:24 | disposition home or self-care (01) ==
LOC: ER 15:54
DX: R21 Rash and other nonspecific skin eruption (principal); R22.9 Localized swelling, mass and lump, unspecified
CPT/HCPCS: J1100

== ENCOUNTER 2022-12-26 14:42 | Emergency (ER) | payer OTHER, SELFPAY ==
--- OUTSIDE RECORDS SUMMARY | 2022-12-26 14:45 | XMS REPORT | Continuity of Care Document ---
:2000 Author Organization [facility] t Address [address] [place] [id number] Care Team Providers Name Role Phone GLENDA ATKINSONTONYATERELL Primary Care Physician Unavailable NICOLAS ARREOLA Attending Clinician Unavailable Nicolas Mensah Attending Clinician MICHELLE ORDONEZ Attending Clinician Unavailable Michelle Ordonez DO Attending Clinician CALVIN العلي Attending Clinician Unavailable Calvin العلي MD Attending Clinician Payers Payer Name Policy Type Policy Number Effective Date Expiration Date S david [facility] [id number] 2022 00:00:00 [facility] [id number] 2018 00:00:00 Problems Condition Condition Condition Status Onset Resolution Last Treating Co mments Source Name Details Category Date Date Treatment Clinician Date Acute pain Acute pain Disease Active 2015-05 U nivers of right of right ity of knee knee 00:00: [address] Allergies, Adverse Reactions, Alerts Allergy Allergy Status Severity Reaction(s) Onset Inactive Treating Comm ents Source Name Type Date Date Clinician NO KNOWN Drug Active Univers ALLERGIE Class ity of S [facility] Social History Social Habit Start Date Stop Date Quantity Comments Source Alcohol intake 2022-10-13 2022-10-13 0 /d [facility] 00:00:00 00:00:00 [facility] Exposure to 2022-04-01 2022-04-11 Not sure [facility]-CoV-2 00:00:00 09:14:00 [facility] (event) [place] Tobacco use and 2017-09-03 2017-09-03 Smokeless tobacco Un iversity of exposure 00:00:00 00:00:00 non-user [facility] Sex Assigned At [birth year] Universit y of 00:00:00 00:00:00 [facility] Smoking Status Start Date Stop Date Source Never smoked tobacco [facility] Medications Ordered Filled Start Stop Current Ordering Indication Dosage Frequency Signature Comments Components Source Medication Medication Date Date Medication? Clinician (SIG) Name Name cefdinir 2022- No 300mg 300 mg, [facility] ers (OMNICEF) 10-14 Oral, ity of capsule 300 03:45: 03:58 [place] :[place] dose, On Medical [facility] 10/13/22 Branch at 2245, OLGA LIDIA
Re ason for Anti-Infec tive: Empiric Therapy for Suspected Infection< br>Empiric Therapy Site: Urine
D uration of therapy: 72 hours butalbital- 2022- No 2{tbl} 2 tablet, [facility] acetaminoph 10-14 Oral, ity of en-caff 03:30: 02:56 ONCE, 1 [place] (ESGIC) 00 :00 dose, On Medical 50-325-40 Thu10/13/22 Bran ch mg tablet 2 at 2230, tablet Routine ondansetron 2022- No 4mg 4 mg, [facility] ers (ZOFRAN-ODT 10-14 Oral, ity of ) 03:15: 02:56 ONCE, 1 [place] disintegrat 00 :00 dose, On Medi ferny ing tablet Thu10/13/22 Bra nch 4 mg at 2215, Routine ibuprofen 2022- No 600mg 600 mg, Uni vers (IBU) 10-14 Oral, ity of tablet 600 02:45: 02:56 ONCE, 1 [place] mg 00 :00 dose, On Medical [facility] 10/13/22 Branch at 2145, OLGA LIDIA ondansetron 2022- Yes [id number] 4mg Take 1 Univers 4 mg 6-05 tablet by ity of disintegrat 00:00: mouth [place] ing tablet 00 every 12 Medic al (twelve) Branch hours as needed for Nausea and Vomiting (N/V). cefdinir 2022- Yes [id number] 300mg Take 1 U nivers 300 mg 10-13 capsule by ity of capsule 00:00: 04:59 mouth [place] 00 :00 every 12 Medical (twelve) Branch hours for 7 days. dexamethaso 2021-05- No 10mg 10 mg, Uni vers ne sod phos 0-10 10-10 Intramuscu i ty of PF 11:45: 10:57 lar, ONCE, [place] injection 00 :00 1 dose, On Medi ferny 10 mg Mon Branch 02/17/22 at 0645, 1 mL amoxicillin 2021-05- No [id number] 1{tbl} Take 1 Univers -clavulanat 0-10 10-21 tablet by it y of e 875-125 00:00: 04:59 mouth [place] mg per 00 :00 every 12 Medical tablet (twelve) Branch hours for 10 days. loratadine Yes Take by [facility] ers 10 mg 4-26 mouth. ity of tablet 10:12: [address] Ibuprofen Yes 200mg Take 200 Uni vers 200 mg 4-26 mg by ity of capsule 10:12: mouth. [address] loratadine Yes Take by [facility] ers 10 mg 4-26 mouth. ity of tablet 10:12: [address] Ibuprofen Yes 200mg Take 200 Uni vers 200 mg 4-26 mg by ity of capsule 10:12: mouth. [address] loratadine Yes Take by [facility] ers 10 mg 4-26 mouth. ity of tablet 10:12: [address] Ibuprofen Yes 200mg Take 200 Uni vers 200 mg 4-26 mg by ity of capsule 10:12: mouth. [address] levothyroxi Yes 75ug Take 75 Uni vers ne 75 mcg 2-29 mcg by ity of tablet 00:00: mouth. [address] levothyroxi Yes 75ug Take 75 Uni vers ne 75 mcg 2-29 mcg by ity of tablet 00:00: mouth. [address] levothyroxi Yes 75ug Take 75 Uni vers ne 75 mcg 2-29 mcg by ity of tablet 00:00: mouth. [place] 00 Medical Branch Vital Signs Vital Name Observation Time Observation Value Comments Source Systolic blood 2022-10-14 04:00:00 108 mm[Hg] Univer sity of pressure [facility] Diastolic blood 2022-10-14 04:00:00 93 mm[Hg] Unive rsity of pressure [facility] Heart rate 2022-10-14 04:00:00 73 /min Universi ty of [facility] Body temperature 2022-10-14 04:00:00 37.06 Lora [facility] ersity of [facility] Oxygen saturation in 2022-10-14 04:00:00 97 /min University of Arterial blood by [place] [employer] ferny Pulse oximetry Branch Respiratory rate 2022-10-14 03:58:00 18 /min Univ ersity of [facility] Branch Body height 2022-10-14 02:14:00 172.7 cm Universi ty of [place] Medical [place] Body weight 2022-10-14 02:14:00 117.935 kg Universi ty of [place] [facility] [place] BMI 2022-10-14 02:14:00 39.53 kg/m2 Universi ty [facility] [place] [facility] Systolic blood 2022-04-11 15:13:00 149 mm[Hg] Univer sity of pressure [facility] Branch Diastolic blood 2022-04-11 15:13:00 87 mm[Hg] Unive rsity of pressure [facility] Heart rate 2022-04-11 15:13:00 88 /min Universi ty [facility] [place] [facility] Body temperature 2022-04-11 15:13:00 37.11 Lora Univ ersity of [facility] Respiratory rate 2022-04-11 15:13:00 14 /min Univ ersity of [facility] Branch Body height 2022-04-11 15:13:00 172.7 cm [facility] [place] [facility] Body weight 2022-04-11 15:13:00 108.863 kg [facility] [place] [facility] BMI 2022-04-11 15:13:00 36.49 kg/m2 [facility] [place] [facility] Oxygen saturation in 2022-04-11 15:13:00 98 /min University of Arterial blood by [place] Medi ferny Pulse oximetry Branch Heart rate 2022-02-17 10:11:00 119 /min Universi ty of [facility] Branch Systolic blood 2022-02-17 10:08:00 141 mm[Hg] Univer sity of pressure [facility] Diastolic blood 2022-02-17 10:08:00 97 mm[Hg] Unive rsity of pressure [facility] Body temperature 2022-02-17 10:08:00 37.61 Lora [facility] Respiratory rate 2022-02-17 10:08:00 18 /min [facility] Body height 2022-02-17 10:08:00 172.7 cm [facility] Body weight 2022-02-17 10:08:00 111.131 kg [facility] BMI 2022-02-17 10:08:00 37.25 kg/m2 [facility] Oxygen saturation in 2022-02-17 10:08:00 98 /min [facility] Arterial blood by [facility] Pulse oximetry Branch Procedures Procedure Date / Time Performed Performing Clinician Sour e URINALYSIS 2022-10-14 03:00:00 Nicolas Arreola [facility] POCT TEST 2022-10-14 02:55:00 Nicolas Arreola [facility] COVID-19 (ID NOW RAPID 2022-10-14 02:54:00 Nicolas Arreola [facility] TESTING) [facility] RAPID INFLUENZA A/B 2022-10-14 02:54:00 Nicolas Arreola [facility] CONSENT/REFUSAL FOR 2022-10-14 02:10:01 Doctor Unassigned, No [facility] [place] DI[facility] AND Name Medical Branch TREATMENT CONSENT/REFUSAL FOR 2022-04-11 15:07:08 Doctor Unassigned, No Un iversity of [place] DIAGNOSIS AND Name Medical [place] TREATMENT RAPID STREP SCREEN FOR 2022-02-17 10:14:00 Calvin العلي [facility] GROUP A Medical [place] NOTICE OF PRIVACY 2022-02-17 10:05:06 Doctor Unassigned, No Univ [facility] PRACTICES Name [facility] CONSENT/REFUSAL FOR 2022-02-17 10:01:03 Doctor Unassigned, No Un [facility] [place] DIAGNOSIS AND Name Medical Branch TREATMENT Encounters Start End Encounter Admission Attending Care Care Encounter Source Date/Time Date/Time Type Type Clinicians Facility Department ID 2022-10-13 2022-10-13 [facility] [id number] Univers 21:18:00 23:04:00 NICOLAS manohar [facility] 2022-10-13 2022-10-13 [facility] [id number] Univers 21:18:00 23:04:00 Nicolas RAMIREZ [id number] i ty of [place] [id number] [facility] [id number] [address] 2022-04-11 2022-04-11 Emergency X [facility] [id number] Univers 09:19:00 09:37:00 MICHELLE [facility] 2022-04-11 2022-04-11 [facility] [id number] Univers 09:19:00 09:37:00 Michelle RAMIREZ [id number] ity [facility] [id number] [facility] [id number] [address] 2022-02-17 2022-02-17 Emergency [facility] [id number] Univers 05:14:00 06:18:00 CALVIN [facility] 2022-02-17 2022-02-17 [facility] [id number] Univers 05:14:00 06:18:00 Calvin RAMIREZ [id number] i ty of [place] [id number] [facility] [id number] [address] Results Test Description Test Time Test Comments Results Result Comments Source POCT TEST 2022-10-14 02:55:00 Test Item Value Reference Range Interpretation Comme nts POCT PREG (test code = 1605) Negative On board controls acceptable with C Line (test code = 3574) No POCT PREG LOT # (test code = 3575) [id number] Lab Interpretation (test code = 72031-4) Normal [facility]
[2022-12-26 15:37] LABS: Absolute Lymphocytes (CBC) 0.8 K/uL (0.7-4.9); Hematocrit 40.4 % (36.0-45.0); Lymphocytes % 4.5 % (15.3-44.8); MCV 83.5 fL (80-100); MPV 8.4 fL (7.6-11.3); Platelets 378 thou/uL (152-406); RBC Red Blood Cell Count 4.84 M/uL (3.86-4.86)
[2022-12-26 15:41] LABS: Specific Gravity 1.032 (1.005-1.030); Specific Gravity > 1.030 (1.005-1.030); Urine Bacteria >50 /HPF (<20); Urine Bilirubin NEGATIVE (Negative); Urine Blood Negative (Negative); Urine Clarity Extremely Turbid (Clear); Urine Color Yellow (Yellow); Urine Glucose NEGATIVE (Negative); Urine Mucus 1+ /HPF (None Seen); Urine Protein 1+ (Negative); Urine Urobilinogen Normal (Normal)
[2022-12-26 15:54] LABS: SARS-CoV-2 Antigen Rapid Res Negative (Negative)
[2022-12-26 15:55] LABS: Albumin 4.2 g/dL (3.4-5.0); Bilirubin Total 0.4 mg/dL (0.2-1.0); Potassium 3.7 mEq/L (3.5-5.1); Protein, Total 8.5 g/dL (6.4-8.2)
[2022-12-26] MEDS ORDERED: ONDANSETRON 4 MG/2 ML VIAL ONE (15:59)
[2022-12-26] MEDS ORDERED: NA CHLORIDE 0.9% 1,000 ML ONE (15:59)
--- NOTE | 2022-12-26 16:21 | RAD REPORT ---
EXAM DESCRIPTION: CT - Abdomen Pelvis W Contrast - 12/26/2022 3:52 pm CLINICAL HISTORY: vomiting;Abd pain COMPARISON: Abdomen Pelvis W Contrast dated 08/27/2020; Abdomen Pelvis W Contrast dated 01/11/2019; CT ABD PELVIS W CONTRAST dated 07/01/2007 TECHNIQUE: Thin cut axial CT imaging of the abdomen and pelvis was performed following intravenous a dministration of 100 mL Isovue 300. Multiplanar reformats were generated and reviewed. All CT scans are performed using dose optimization technique as appropriate and may include automated exposure control or mA/KV adjustment according to patient size. FINDINGS: No suspicious findings in the lung bases. Small calcified left lower lung granulomas, stab le. The liver, spleen, adrenal glands, and pancreas show no suspicious findings. Gallbladder and biliary tree are also without suspicious finding. Symmetric renal function is seen with no hydronephrosis or suspicious renal mass. No dilated bowel loops or bowel wall thickening. Status post appendicectomy. Segmental fluid filling of nondistended small bowel, nonspecific. No free air, free fluid or inflammatory stranding. No herni a, mass or bulky lymphadenopathy. The urinary bladder is without significant finding. No suspicious bony findings. IMPRESSION: Segmental fluid filling of nondistended small bowel, nonspecific, and could relate to mi ld enteritis or a diarrheal state. No other acute intra-abdominal process.
--- NOTE | 2022-12-26 16:50 | ER ---
Nurse's Notes [facility] Name: Carmen Lea Age: 22 yrs Sex: Female : 2000 Arrival Date: 12/26/2022 Time: 14:42 Bed 11 Private MD: Diagnosis: Infectious gastroenteritis and colitis, unspecified;UTI/ Urinary tract infection, site not specified;Dehydration Presentation: 12/26 14:49 Chief complaint: Patient states: vomiting and diarrhea onset today. Pt states that she cm10 is also having abdominal pain. Pt denies sick contacts. Coronavirus screen: Vaccine status: Patient reports being unvaccinated. Ebola Screen: Patient denies travel to an Ebola-affected area in the 21 days before illness onset. No symptoms or risks identified at this time. 14:49 Method Of Arrival: Ambulatory [facility] 15:38 Acuity: LORENA 3 ss Historical: - Allergies: 14:53 " a pain medicine"; cm10 - PMHx: 14:53 None; cm10 - PSHx: 14:53 Appendectomy; cm10 - Immunization history:: Adult Immunizations unknown. - Social history:: Smoking status: Patient denies any tobacco usage or history of. - Family history:: not pertinent. - Hospitalizations: : No recent hospitalization is reported. Screenin:50 [facility] ED Fall Risk Assessment (Adult) History of falling in the last 3 months, ss including since admission No falls in past 3 months (0 pts). Abuse screen: Denies threats or abuse. Denies injuries from another. Nutritional screening: No deficits noted. Tuberculosis screening: Never had TB. Assessment: 15:50 Reassessment: Pt to CT now VIA wheelchair. ss 17:03 Reassessment: Patient appears in no apparent distress at this time. Patient is alert, ss oriented x 3, equal unlabored respirations, skin warm/dry/pink. Patient states feeling better. Patient states symptoms have improved. Vital Signs: 14:49 BP 144 / 89; Pulse 64; Resp 18; Temp 98; Pulse Ox 100% ; Weight 108.86 kg; Height 5 ft. cm10 8 in. ; Pain 6/10; 14:49 Body Mass Index 36.49 (108.86 kg, 172.72 cm) cm10 14:49 Pain Scale: Adult 10 ED Course: 14:45 Patient arrived in ED. im 14:45 Richard Jesus MD is Attending Physician. rn 14:54 Arm band placed on Patient placed in waiting room. cm10 15:27 Flu Sent. bc6 15:27 SARS RAPID Sent. bc6 15:27 CBC with Diff Sent. bc6 15:27 CMP Sent. bc6 15:27 Lipase Sent. bc6 15:27 Test, Urine Sent. bc6 15:28 Urinalysis w/ reflexes Sent. bc6 15:28 Inserted saline lock: 22 gauge in left antecubital area, using aseptic technique. Blood bc6 collected. 15:38 Triage completed. ss 15:50 Azucena Guan, RN is Primary Nurse. ss 15:50 Patient has correct armband on for positive identification. Bed in low position. ss 15:54 CT Abd/Pelvis - IV Contrast Only In Process Unspecified. EDMS 17:03 No provider procedures requiring assistance completed. Patient did not have IV access ss during this emergency room visit. Administered Medications: 15:59 Drug: NS 0.9% IV 1000 ml Route: IV; Rate: 1 bolus; Site: left antecubital; ss 17:37 Follow up: IV Status: Completed infusion; IV Intake: 1000ml ss 15:59 Drug: Ondansetron IVP 4 mg Route: IVP; Site: left antecubital; ss 17:38 Follow up: Response: No adverse reaction ss 17:02 Drug: Ciprofloxacin PO 500 mg Route: PO; ss 17:37 Follow up: Response: No adverse reaction ss 17:02 Drug: metroNIDAZOLE PO 500 mg Route: PO; ss 17:37 Follow up: Response: No adverse reaction ss Medication: 15:50 VIS not applicable for this client. ss Intake: 17:37 IV: 1000ml; Total: 1000ml. ss Outcome: 16:49 Discharge ordered by . rn 17:03 Condition: good ss 17:03 Instructed on discharge instructions, follow up and referral plans. medication usage. 17:37 Patient left the ED. ss Signatures: Dispatcher [employer] EDID Richard Jessu MD MD rn Blanchard, Shelby, BOO RN ss Yolanda Noel bc6 Nena Suazo Clarissa, RN RN cm10
--- NOTE | 2022-12-26 16:50 | EDPHYS ---
Physician Documentation [facility] Name: Carmen Lea Age: 22 yrs Sex: Female : 2000 Arrival Date: 12/26/2022 Time: 14:42 Bed 11 Private MD: ED Physician Richard Jesus HPI: 12/26 15:48 This 22 yrs old Female presents to ER via Ambulatory with complaints of Vomiting, rn General Weakness. 15:48 The patient presents to the emergency department with nausea, vomiting, diarrhea, rn abdominal pain. Onset: The symptoms/episode began/occurred yesterday. Possible causes: unknown. The symptoms are aggravated by nothing. The symptoms are alleviated by nothing. Associated signs and symptoms: Pertinent positives: abdominal pain, diarrhea, nausea, vomiting, Pertinent negatives: fever, GI bleeding. Severity of symptoms: At their worst the symptoms were moderate in the emergency department the symptoms are unchanged. The patient has not experienced similar symptoms in the past. The patient has not recently seen a physician. Historical: - Allergies: 14:53 " a pain medicine"; cm10 - PMHx: 14:53 None; cm10 - PSHx: 14:53 Appendectomy; cm10 - Immunization history:: Adult Immunizations unknown. - Social history:: Smoking status: Patient denies any tobacco usage or history of. - Family history:: not pertinent. - Hospitalizations: : No recent hospitalization is reported. ROS: 15:48 Constitutional: Negative for fever, chills, and weight loss, Eyes: Negative for injury, rn pain, redness, and discharge, ENT: Negative for injury, pain, and discharge, Cardiovascular: Negative for chest pain, palpitations, and edema, Respiratory: Negative for shortness of breath, cough, wheezing, and pleuritic chest pain, Abdomen/GI: + abd pain and vomiting/diarrhea Back: Negative for injury and pain, MS/Extremity: Negative for injury and deformity, Skin: Negative for injury, rash, and discoloration, Neuro: + generalized fatigue Exam: 15:48 Constitutional: This is a well developed, well nourished patient who is awake, alert, rn and in no acute distress, ambulatory to room without difficulty, wearing a blanket around herself Head/Face: Normocephalic, atraumatic. ENT: + dry MM Cardiovascular: Regular rate and rhythm. No pulse deficits. Respiratory: No increased work of breathing, no retractions or nasal flaring. Abdomen/GI: soft, mild mid abd tenderness, no rebound Skin: Warm, dry MS/ Extremity: Pulses equal, no cyanosis. Neuro: Awake and alert, GCS 15 Vital Signs: 14:49 BP 144 / 89; Pulse 64; Resp 18; Temp 98; Pulse Ox 100% ; Weight 108.86 kg; Height 5 ft. cm10 8 in. ; Pain 6/10; 14:49 Body Mass Index 36.49 (108.86 kg, 172.72 cm) cm10 14:49 Pain Scale: Adult cm10 MDM: 14:45 Patient medically screened. rn 16:48 Differential diagnosis: Nonspecific abd pain, gastritis, pancreatitis, diverticulitis, rn viral gastroenteritis, gastroenteritis. Data reviewed: vital signs, nurses notes, lab test result(s), radiologic studies, CT scan, and as a result, I will discharge patient. Counseling: I had a detailed discussion with the patient and/or guardian regarding the historical points, exam findings, and any diagnostic results supporting the discharge/admit diagnosis, lab results, radiology results, the need for outpatient follow up, to return to the emergency department if symptoms worsen or persist or if there are any questions or concerns that arise at home. Response to treatment: the patient's symptoms have markedly improved after treatment, and as a result, I will discharge patient. Special discussion: Based on the patient's Hx, exam, and Dx evaluation, there is no indication for emergent surgery or inpatient Tx. It is understood by the patient/guardian that if the Sx's persist or worsen they need to return immediately for re-evaluation. I discussed with the patient/guardian in detail that at this point there is no indication for admission to the hospital. It is understood, however, that if the symptoms persist or worsen the patient needs to return immediately for re-evaluation. 12/26 14:55 Order name: CBC with Diff; Complete Time: :12/26 14:55 Order name: CMP; Complete Time: 16:12/26 14:55 Order name: Lipase; Complete Time: 16:12/26 14:55 Order name: Test, Urine; Complete Time: 16:12/26 14:55 Order name: Urinalysis w/ reflexes; Complete Time: 16: rn 12/26 14:55 Order name: SARS RAPID; Complete Time: 16:09 rn 12/26 14:55 Order name: Flu; Complete Time: 16:09 rn 12/26 15:44 Order name: Urine Culture EDMN 12/26 14:55 Order name: CT Abd/Pelvis - IV Contrast Only; Complete Time: 16:42 rn 12/26 14:55 Order name: IV Saline Lock; Complete Time: 15:27 rn 12/26 14:55 Order name: Labs collected and sent; Complete Time: 15:27 rn Administered Medications: 15:59 Drug: NS 0.9% IV 1000 ml Route: IV; Rate: 1 bolus; Site: left antecubital; ss 17:37 Follow up: IV Status: Completed infusion; IV Intake: 1000ml ss 15:59 Drug: Ondansetron IVP 4 mg Route: IVP; Site: left antecubital; ss 17:38 Follow up: Response: No adverse reaction ss 17:02 Drug: Ciprofloxacin PO 500 mg Route: PO; ss 17:37 Follow up: Response: No adverse reaction ss 17:02 Drug: metroNIDAZOLE PO 500 mg Route: PO; ss 17:37 Follow up: Response: No adverse reaction ss Disposition Summary: 12/26/22 16:49 Discharge Ordered Location: Home rn Problem: new rn Symptoms: have improved rn Condition: Stable rn Diagnosis - Infectious gastroenteritis and colitis, unspecified rn - UTI/ Urinary tract infection, site not specified rn - Dehydration rn Followup: rn - With: Private Physician - When: As needed - Reason: Recheck today's complaints, Re-evaluation by your physician Discharge Instructions: - Discharge Summary Sheet rn - Diarrhea, Adult rn - Nausea and Vomiting, Adult rn - Urinary Tract Infection, Adult rn Forms: - Medication Reconciliation Form rn - Thank You Letter rn - Antibiotic sock turner - Prescription Opioid Use rn - Patient Portal Instructions rn - Leadership Thank You Letter rn - Work release form ss Prescriptions: - ondansetron 4 mg Oral Tablet,disintegrating - take 1 tablet by ORAL route every 8 hours As needed; 15 tablet; Refills: 0, rn Product Selection Permitted - Flagyl 500 mg Oral Tablet - take 1 tablet by ORAL route every 8 hours for 10 days; 30 tablet; Refills: 0, rn Product Selection Permitted - Cipro 500 mg Oral Tablet - take 1 tablet by ORAL route every 12 hours for 10 days; 20 tablet; Refills: 0, rn Product Selection Permitted Signatures: Dispatcher [employer] Richard Ribeiro MD MD rn Blanchard, Shelby, RN RN ss Martinez, Clarissa, RN RN cm10
[2022-12-26] MEDS ORDERED: metroNIDAZOLE 500 MG TABLET ONE (17:07)
[2022-12-26] MEDS ORDERED: CIPROFLOXACIN HCL 500 MG TAB ONE (17:08)
[2022-12-26 18:12] VITALS: BP 144/89; TEMP 98; O2SAT 100
== END 2022-12-26 17:37 | disposition home or self-care (01) ==
LOC: ER 14:42
DX: A09 Infectious gastroenteritis and colitis, unspecified (principal); N39.0 Urinary tract infection, site not specified; E86.0 Dehydration; Z20.822 Contact with and (suspected) exposure to COVID-19
CPT/HCPCS: 96361; 87088; 85025; 81001; 87086; 36415; 81025; 83690; 80053; 87804 ×2; 74177; 96374; 99284; 87811; Q9967; J2405; J7030

== ENCOUNTER 2022-12-28 11:20 | Emergency (ER) | payer OTHER ==
--- OUTSIDE RECORDS SUMMARY | 2022-12-28 11:23 | XMS REPORT | Continuity of Care Document ---
:2000 Author Organization [facility] t Address [address] [place] [id number] Care Team Providers Name Role Phone GLENDA ATKINSONTONYATERELL Primary Care Physician Unavailable NICOLAS ARREOLA Attending Clinician Unavailable Nicolas Mensah Attending Clinician MICHELLE ORDONEZ Attending Clinician Unavailable Michelle Ordonez DO Attending Clinician CALVIN العلي Attending Clinician Unavailable Calvin العلي MD Attending Clinician Payers Payer Name Policy Type Policy Number Effective Date Expiration Date S david [facility] [id number] 2022 00:00:00 [facility] [id number] 2018 00:00:00 Problems Condition Condition Condition Status Onset Resolution Last Treating Co mments Source Name Details Category Date Date Treatment Clinician Date Acute pain Acute pain Disease Active 2015-05 U nivers of right of right ity of knee knee 00:00: [address] Allergies, Adverse Reactions, Alerts Allergy Allergy Status Severity Reaction(s) Onset Inactive Treating Comm ents Source Name Type Date Date Clinician NO KNOWN Drug Active Univers ALLERGIE Class ity of S [facility] Social History Social Habit Start Date Stop Date Quantity Comments Source Alcohol intake 2022-10-13 2022-10-13 0 /d [facility] 00:00:00 00:00:00 [facility] Exposure to 2022-04-01 2022-04-11 Not sure [facility]-CoV-2 00:00:00 09:14:00 [facility] (event) Gary Tobacco use and 2017-09-03 2017-09-03 Smokeless tobacco Un iversity of exposure 00:00:00 00:00:00 non-user [facility] Sex Assigned At [birth year] Universit y of 00:00:00 00:00:00 [facility] Smoking Status Start Date Stop Date Source Never smoked tobacco [facility] Medications Ordered Filled Start Stop Current Ordering Indication Dosage Frequency Signature Comments Components Source Medication Medication Date Date Medication? Clinician (SIG) Name Name cefdinir 2022- No 300mg 300 mg, [facility] ers (OMNICEF) 10-14 Oral, ity of capsule 300 03:45: 03:58 [place] 00 :00 dose, On Medical [facility] 10/13/22 Branch at 2245, OLGA LIDIA
Re ason for Anti-Infec tive: Empiric Therapy for Suspected Infection< br>Empiric Therapy Site: Urine
D uration of therapy: 72 hours butalbital- 2022- No 2{tbl} 2 tablet, [facility] acetaminoph 10-14 Oral, ity of en-caff 03:30: 02:56 ONCE, 1 [place] (ESGIC) 00 :00 dose, On Medical 50-325-40 Thu10/13/22 Bran ch mg tablet 2 at 2230, tablet Routine ondansetron 2022- No 4mg 4 mg, [facility] ers (ZOFRAN-ODT 10-14 Oral, ity of ) 03:15: 02:56 ONCE, 1 [place] disintegrat 00 :00 dose, On Medi ferny ing tablet Thu10/13/22 Bra nch 4 mg at 2215, Routine ibuprofen 2022- No 600mg 600 mg, Uni vers (IBU) 10-14 Oral, ity of tablet 600 02:45: 02:56 ONCE, 1 [place] as mg 00 :00 dose, On Medical [facility] 10/13/22 Branch at 2145, OLGA LIDIA ondansetron 2022- Yes [id number] 4mg Take 1 Univers 4 mg 6-05 tablet by ity of disintegrat 00:00: mouth [place] ing tablet 00 every 12 Medic al (twelve) Branch hours as needed for Nausea and Vomiting (N/V). cefdinir 2022- Yes [id number] 300mg Take 1 U nivers 300 mg [...] at 0645, 1 mL amoxicillin 2021-05- No [id number] 1{tbl} Take 1 Univers -clavulanat 0-10 10-21 tablet by it y of e 875-125 00:00: 04:59 mouth [place] mg per 00 :00 every 12 Medical tablet (twelve) Branch hours for 10 days. loratadine Yes Take by [facility] ers 10 mg 4-26 mouth. ity of tablet 10:12: [address] Ibuprofen Yes 200mg Take 200 Uni vers 200 mg 4-26 mg by ity of capsule 10:12: mouth. [address] loratadine Yes Take by [facility] ers 10 mg 4-26 mouth. ity of tablet 10:12: [address] Ibuprofen Yes 200mg Take 200 Uni vers 200 mg 4-26 mg by ity of capsule 10:12: mouth. [address] loratadine Yes Take by [facility] ers 10 mg 4-26 mouth. ity of tablet 10:12: [address] Ibuprofen Yes 200mg Take 200 Uni vers 200 mg 4-26 mg by ity of capsule 10:12: mouth. [address] levothyroxi Yes 75ug Take 75 Uni vers ne 75 mcg 2-29 mcg by ity of tablet 00:00: mouth. [address] levothyroxi Yes 75ug Take 75 Uni vers ne 75 mcg 2-29 mcg by ity of tablet 00:00: mouth. [address] levothyroxi Yes 75ug Take 75 Uni vers ne 75 mcg 2-29 mcg by ity of tablet 00:00: mouth. [place] 00 Medical Branch Vital Signs Vital Name Observation Time Observation Value Comments Source Systolic blood 2022-10-14 04:00:00 108 mm[Hg] Univer sity of pressure [facility] Diastolic blood 2022-10-14 04:00:00 93 mm[Hg] Unive rsity of pressure [facility] Heart rate 2022-10-14 04:00:00 73 /min Universi ty of [facility] Body temperature 2022-10-14 04:00:00 37.06 Lora [facility] ersity of [facility] Oxygen saturation in 2022-10-14 04:00:00 97 /min University of Arterial blood by [place] [employer] ferny Pulse oximetry Branch Respiratory rate 2022-10-14 03:58:00 18 /min Univ ersity of [facility] Branch Body height 2022-10-14 02:14:00 172.7 cm Universi ty of [place] Medical Gary Body weight 2022-10-14 02:14:00 117.935 kg Universi ty of [place] Medical Gary BMI 2022-10-14 02:14:00 39.53 kg/m2 Universi ty of [place] [facility] Branch Systolic blood 2022-04-11 15:13:00 149 mm[Hg] Univer sity of pressure [facility] Branch Diastolic blood 2022-04-11 15:13:00 87 mm[Hg] Unive rsity of pressure [facility] Heart rate 2022-04-11 15:13:00 88 /min Universi ty [facility] [place] [facility] Body temperature 2022-04-11 15:13:00 37.11 Lora Univ ersity of [facility] Respiratory rate 2022-04-11 15:13:00 14 /min Univ ersity of [facility] Branch Body height 2022-04-11 15:13:00 172.7 cm Universi ty [facility] [place] [facility] Body weight 2022-04-11 15:13:00 108.863 kg [facility] [place] [facility] BMI 2022-04-11 15:13:00 36.49 kg/m2 [facility] [place] [facility] Oxygen saturation in 2022-04-11 15:13:00 98 /min University of Arterial blood by [place] Medi ferny Pulse oximetry Branch Heart rate 2022-02-17 10:11:00 119 /min Universi ty of [facility] Branch Systolic blood 2022-02-17 10:08:00 141 mm[Hg] Univer sity of pressure [facility] Diastolic blood 2022-02-17 10:08:00 97 mm[Hg] Unive rsity of pressure [facility] Body temperature 2022-02-17 10:08:00 37.61 Lora [facility] Respiratory rate 2022-02-17 10:08:00 18 /min [facility] Body height 2022-02-17 10:08:00 172.7 cm [facility] Body weight 2022-02-17 10:08:00 111.131 kg [facility] BMI 2022-02-17 10:08:00 37.25 kg/m2 [facility] Oxygen saturation in 2022-02-17 10:08:00 98 /min [facility] Arterial blood by [place] [facility] Pulse oximetry Branch Procedures Procedure Date / Time Performed Performing Clinician Sour e URINALYSIS 2022-10-14 03:00:00 Nicolas Arreola [facility] POCT TEST 2022-10-14 02:55:00 Nicolas Arreola [facility] COVID-19 (ID NOW RAPID 2022-10-14 02:54:00 Nicolas [facility] TESTING) [facility] RAPID INFLUENZA A/B 2022-10-14 02:54:00 Nicolas Arreola [facility] CONSENT/REFUSAL FOR 2022-10-14 02:10:01 Doctor Unassigned, No [facility] [place] [facility] [place] DIAGNOSIS AND Name Medical Branch TREATMENT CONSENT/REFUSAL FOR 2022-04-11 15:07:08 Doctor Unassigned, No Un iversity of [place] DIAGNOSIS AND Name Medical [place] TREATMENT RAPID STREP SCREEN FOR 2022-02-17 10:14:00 Calvin [facility]عل[facility] Medical [place] NOTICE OF PRIVACY 2022-02-17 10:05:06 Doctor Unassigned, No Univ [facility] PRACTICES Name [facility] CONSENT/REFUSAL FOR 2022-02-17 10:01:03 Doctor Unassigned, No Un iversity of [place] DIAGNOSIS AND Name Medical Branch TREATMENT Encounters Start End Encounter Admission Attending Care Care Encounter Source Date/Time Date/Time Type Type Clinicians Facility Department ID 2022-10-13 2022-10-13 [facility] [id number] Univers 21:18:00 23:04:00 NICOLAS manohar [facility] 2022-10-13 2022-10-13 [facility] [id number] Univers 21:18:00 23:04:00 Nicolas RAMIREZ [id number] i ty of [place] [id number] [facility] [id number] [address] 2022-04-11 2022-04-11 Emergency X [facility] [id number] Univers 09:19:00 09:37:[address] [facility] 2022-04-11 2022-04-11 [facility] [id number] Univers 09:19:00 09:37:00 Michelle RAMIREZ [id number] ity [facility] [id number] [facility] [id number] [address] 2022-02-17 2022-02-17 Emergency [facility] [id number] Univers 05:14:00 06:18:[address] [facility] 2022-02-17 2022-02-17 [facility] [id number] Univers 05:14:00 06:18:00 Calvin RAMIREZ [id number] i ty of [place] [id number] [facility] [id number] [address] Results Test Description Test Time Test Comments Results Result Comments Source POCT TEST 2022-10-14 02:55:00 Test Item Value Reference Range Interpretation Comme nts POCT PREG (test code = 1605) Negative On board controls acceptable with C Line (test code = 3574) No POCT PREG LOT # (test code = 3575) [id number] Lab Interpretation (test code = 18215-8) Normal [facility]
[2022-12-28] MEDS ORDERED: NA CHLORIDE 0.9% 1,000 ML ONE ×3 (12:01→13:52)
[2022-12-28] MEDS ORDERED: CEFTRIAXONE 1000 MG/VIAL ONE (12:21)
[2022-12-28] MEDS ORDERED: PROMETHAZINE INJ 25 MG/ML AMP ONE (12:21)
[2022-12-28] MEDS ORDERED: NA CHLORIDE 0.9% 250 ML ONE (12:21)
[2022-12-28] MEDS ORDERED: NA CHLORIDE 0.9% 50 ML ONE (12:22)
[2022-12-28 12:26] LABS: Absolute Lymphocytes (CBC) 1.1 K/uL (0.7-4.9); Hematocrit 40.1 % (36.0-45.0); Lymphocytes % 8.8 % (15.3-44.8); MCV 83.6 fL (80-100); Platelets 345 thou/uL (152-406)
[2022-12-28 12:38] LABS: Albumin 3.9 g/dL (3.4-5.0); Bilirubin Total 0.3 mg/dL (0.2-1.0); Potassium 3.9 mEq/L (3.5-5.1)
[2022-12-28 13:43] LABS: Blood Morphology Comment NOT SEEN (NOT SEEN); Platelet Estimate ADEQ; White Blood Cell Scan OK (OK)
--- NOTE | 2022-12-28 14:33 | ER ---
Nurse's Notes [facility] Name: Carmen Lea Age: 22 yrs Sex: Female : 2000 Arrival Date: 12/28/2022 Time: 11:20 Bed 14 Private MD: Diagnosis: UTI/ Urinary tract infection, site not specified;Nausea with vomiting, unspecified;Volume depletion, unspecified Presentation: 12/28 11:39 Chief complaint: N/V?D and upper abdominal pain 7/10 x 2 days. Not tolerating hb fluids/meds. Coronavirus screen: Client presents with at least one sign or symptom that may indicate coronavirus-19. Provider contacted for isolation considerations. Ebola Screen: No symptoms or risks identified at this time. Initial Sepsis Screen: Does the patient meet any 2 criteria? No. Patient's initial sepsis screen is negative. Does the patient have a suspected source of infection? No. Patient's initial sepsis screen is negative. Risk Assessment: Do you want to hurt yourself or someone else? Patient reports no desire to harm self or others. Onset of symptoms was December 25, 2022. 11:39 Method Of Arrival: Ambulatory hb 11:39 Acuity: LORENA 3 hb Triage Assessment: 12:22 General: Appears in no apparent distress. comfortable, Behavior is calm, appropriate db for age. Pain: Complains of pain in abdomen and left upper quadrant and right upper quadrant. Respiratory: Airway is patent Respiratory effort is even, unlabored, Respiratory pattern is regular, symmetrical. GI: Abdomen is flat, non-distended, Reports nausea, vomiting. 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 - Social history:: Smoking status: Patient denies any tobacco usage or history of. Screenin:06 [facility] ED Fall Risk Assessment (Adult) History of falling in the last 3 months, db including since admission No falls in past 3 months (0 pts) Confusion or Disorientation No (0 pts) Intoxicated or Sedated No (0 pts) Impaired Gait No (0 pts) Mobility Assist Device Used No (0 pt) Altered Elimination No (0 pt) Score/Fall Risk Level 0 - 2 = Low Risk Oriented to surroundings, Maintained a safe environment. Abuse screen: Denies threats or abuse. Denies injuries from another. Nutritional screening: No deficits noted. Tuberculosis screening: No symptoms or risk factors identified. Assessment: 12:24 Reassessment: Patient appears in no apparent distress at this time. Patient and/or db family updated on plan of care and expected duration. Pain level reassessed. Patient is alert, oriented x 3, equal unlabored respirations, skin warm/dry/pink. General: Appears in no apparent distress. comfortable, Behavior is calm, appropriate for age. Pain: Complains of pain in abdomen. Neuro: Level of Consciousness is awake, alert, obeys commands, Oriented to person, place, time, situation. 13:30 Reassessment: Patient appears in no apparent distress at this time. Patient and/or db family updated on plan of care and expected duration. Pain level reassessed. Patient is alert, oriented x 3, equal unlabored respirations, skin warm/dry/pink. General: Appears in no apparent distress. 14:15 Reassessment: Patient appears in no apparent distress at this time. Patient and/or db family updated on plan of care and expected duration. Pain level reassessed. Patient is alert, oriented x 3, equal unlabored respirations, skin warm/dry/pink. 15:04 Reassessment: Patient appears in no apparent distress at this time. Patient and/or db family updated on plan of care and expected duration. Pain level reassessed. Patient is alert, oriented x 3, equal unlabored respirations, skin warm/dry/pink. PATIENT PENDING NS BOLUS TO FINISH Patient states feeling better. Patient states symptoms have improved. 15:46 Reassessment: Patient appears in no apparent distress at this time. Patient and/or db family updated on plan of care and expected duration. Pain level reassessed. Patient is alert, oriented x 3, equal unlabored respirations, skin warm/dry/pink. Patient states feeling better. Patient states symptoms have improved. 15:47 GI: Bowel sounds present X 4 quads. Abd is soft. db Vital Signs: 11:39 BP 151 / 74; Pulse 70; Resp 18; Temp 98.2; Pulse Ox 100% on R/A; Weight 108.86 kg; hb Height 5 ft. 8 in. ; Pain 7/10; 12:42 BP 120 / 80; Pulse 63; Resp 17; Pulse Ox 96% on R/A; hb 13:30 BP 128 / 72; Pulse 62; Resp 16; Pulse Ox 100% on R/A; db 15:00 BP 125 / 71; Pulse 67; Resp 16; Pulse Ox 98% on R/A; db 11:39 Body Mass Index 36.49 (108.86 kg, 172.72 cm) hb 11:39 Pain Scale: Adult hb ED Course: 11:21 Patient arrived in ED. ts1 11:37 Susan Odom FNP-C is PHCP. snw 11:37 uSrinder Gupta MD is Attending Physician. snw 11:40 Triage completed. hb 11:40 Arm band placed on. hb 11:49 Amira Benson, RN is Primary Nurse. db 12:05 Inserted saline lock: 24 gauge in left forearm, using aseptic technique. db 12:24 Inserted saline lock: 22 gauge in right forearm, using aseptic technique. ,using db aseptic technique. by thu. 15:06 Patient has correct armband on for positive identification. Bed in low position. Call db light in reach. Side rails up X 1. 15:46 Provided Education on: discharge. db 15:46 No provider procedures requiring assistance completed. IV discontinued, intact, db bleeding controlled, No redness/swelling at site. Administered Medications: 11:51 Drug: NS 0.9% IV 1000 ml Route: IV; Rate: 1 bolus; Site: right forearm; db 12:10 Drug: Promethazine IVP 12.5 mg Route: IVP; Site: right forearm; db 15:45 Follow up: Response: No adverse reaction db 12:12 Drug: NS 0.9% IV 250 ml Route: IV; Rate: bolus; Site: right forearm; db 15:45 Follow up: Response: No adverse reaction; IV Status: Completed infusion; IV Intake: db 250ml 12:15 Drug: Rocephin IV 1 grams Route: IV; Rate: calculated rate; Site: left forearm; db 15:45 Follow up: Response: No adverse reaction; IV Status: Completed infusion; IV Intake: 50mldb 13:35 Drug: NS 0.9% IV 1000 ml Route: IV; Rate: 1 bolus; Site: right forearm; db 15:45 Follow up: Response: No adverse reaction; IV Status: Completed infusion; IV Intake: db 1000ml Medication: 15:46 VIS not applicable for this client. db Intake: 15:45 IV: 1000ml; Total: 1000ml. db 15:45 IV: 50ml; Total: 1050ml. db 15:45 IV: 250ml; Total: 1300ml. db Outcome: 14:33 Discharge ordered by MD. ramirez 15:46 Discharged to home ambulatory. db 15:46 Condition: stable 15:46 Discharge instructions given to patient, Instructed on discharge instructions, follow up and referral plans. Prescriptions given X 1. 15:47 Patient left the ED. db Signatures: Susan Odom, ELECTRICIAN ELEVATOR MAINTENANCE-C ELECTRICIAN ELEVATOR MAINTENANCE-Csnw Magui Guzman, RN RN Amira Benson RN RN db Xochitl Knight, PAS PAS ts1
--- NOTE | 2022-12-28 14:33 | EDPHYS ---
Physician Documentation [facility] Name: Carmen Lea Age: 22 yrs Sex: Female : 2000 Arrival Date: 12/28/2022 Time: 11:20 Bed 14 Private MD: ED Physician Surinder Gupta HPI: 12/28 12:02 This 22 yrs old Female presents to ER via Ambulatory with complaints of Abdominal Pain, snw Nausea/Vomiting. 12:02 The patient presents with abdominal pain in the upper abdomen, suprapubic. Onset: The snw symptoms/episode began/occurred acutely. The symptoms do not radiate. Associated signs and symptoms: Pertinent positives: nausea and vomiting, diarrhea. Severity of pain: At its worst the pain was moderate. The patient has experienced a previous episode, 12/26/22. The patient has been recently seen by a physician: The patient has been recently seen at the [facility] Emergency Department, this week, pt given abx for UTI and anti-emetics. Pt continues with N/V. unable to hold down abx. 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 - Social history:: Smoking status: Patient denies any tobacco usage or history of. ROS: 12:01 Eyes: Negative for injury, pain, redness, and discharge, ENT: Negative for injury, snw pain, and discharge, Neck: Negative for injury, pain, and swelling, Cardiovascular: Negative for chest pain, palpitations, and edema, Respiratory: Negative for shortness of breath, cough, wheezing, and pleuritic chest pain, Back: Negative for injury and pain, : Negative for injury, bleeding, discharge, and swelling, MS/Extremity: Negative for injury and deformity, Skin: Negative for injury, rash, and discoloration, Neuro: Negative for headache, weakness, numbness, tingling, and seizure, Psych: Negative for depression, anxiety, suicide ideation, homicidal ideation, and hallucinations. 12:01 Constitutional: Positive for fatigue, malaise, poor PO intake. 12:01 Abdomen/GI: Positive for abdominal pain, nausea, vomiting, and diarrhea, of the suprapubic area, right upper quadrant and left upper quadrant. Exam: 12:00 Head/Face: Normocephalic, atraumatic. Eyes: Pupils equal round and reactive to light, snw extra-ocular motions intact. Lids and lashes normal. Conjunctiva and sclera are non-icteric and not injected. Cornea within normal limits. Periorbital areas with no swelling, redness, or edema. ENT: Nares patent. No nasal discharge, no septal abnormalities noted. Tympanic membranes are normal and external auditory canals are clear. Oropharynx with no redness, swelling, or masses, exudates, or evidence of obstruction, uvula midline. Mucous membranes moist. Neck: Trachea midline, no thyromegaly or masses palpated, and no cervical lymphadenopathy. Supple, full range of motion without nuchal rigidity, or vertebral point tenderness. No Meningismus. Chest/axilla: Normal chest wall appearance and motion. Nontender with no deformity. No lesions are appreciated. Cardiovascular: Regular rate and rhythm with a normal S1 and S2. No gallops, murmurs, or rubs. Normal PMI, no JVD. No pulse deficits. Respiratory: Lungs have equal breath sounds bilaterally, clear to auscultation and percussion. No rales, rhonchi or wheezes noted. No increased work of breathing, no retractions or nasal flaring. Back: No spinal tenderness. No costovertebral tenderness. Full range of motion. Skin: Warm, dry with normal turgor. Normal color with no rashes, no lesions, and no evidence of cellulitis. MS/ Extremity: Pulses equal, no cyanosis. Neurovascular intact. Full, normal range of motion. Neuro: Awake and alert, GCS 15, oriented to person, place, time, and situation. Cranial nerves II-XII grossly intact. Motor strength 5/5 in all extremities. Sensory grossly intact. Cerebellar exam normal. Normal gait. Psych: Awake, alert, with orientation to person, place and time. Behavior, mood, and affect are within normal limits. 12:00 Constitutional: The patient appears alert, awake, listless, obese. 12:00 Abdomen/GI: Inspection: obese Bowel sounds: diminished, in all quadrants, Palpation: mild abdominal tenderness, in all quadrants. Vital Signs: 11:39 BP 151 / 74; Pulse 70; Resp 18; Temp 98.2; Pulse Ox 100% on R/A; Weight 108.86 kg; hb Height 5 ft. 8 in. ; Pain 7/10; 12:42 BP 120 / 80; Pulse 63; Resp 17; Pulse Ox 96% on R/A; hb 13:30 BP 128 / 72; Pulse 62; Resp 16; Pulse Ox 100% on R/A; db 15:00 BP 125 / 71; Pulse 67; Resp 16; Pulse Ox 98% on R/A; db 11:39 Body Mass Index 36.49 (108.86 kg, 172.72 cm) hb 11:39 Pain Scale: Adult hb MDM: 11:40 Patient medically screened. snw 12:03 Differential diagnosis: appendicitis, bowel obstruction, cholecystitis, Cholelithiasis, snw diverticulitis, gastritis. Data reviewed: vital signs, nurses notes. Counseling: I had a detailed discussion with the patient and/or guardian regarding the historical points, exam findings, and any diagnostic results supporting the discharge/admit diagnosis, the presence of at least one elevated blood pressure reading (>120/80) during this emergency department visit, lab results. 13:23 ED course: Pt resting in no discomfort, "starting to" feel better. Will give one snw additional liter prior to discharge. 13:43 I considered the following discharge prescriptions or medication management in the [facility] emergency department Medications were administered in the Emergency Department. See MAR. Response to treatment: the patient's symptoms have markedly improved after treatment. 12/28 11:38 Order name: CBC with Diff; Complete Time: 13:45 snw 12/28 11:38 Order name: CMP; Complete Time: 12:39 snw 12/28 11:38 Order name: Lipase; Complete Time: 12:39 snw 12/28 11:38 Order name: TS; Complete Time: 13:30 snw 12/28 12:29 Order name: CBC Smear Scan; Complete Time: 13:45 EDMS 12/28 11:38 Order name: IV Saline Lock; Complete Time: 12:07 snw 12/28 11:38 Order name: Labs collected and sent; Complete Time: 12:07 snw Administered Medications: 11:51 Drug: NS 0.9% IV 1000 ml Route: IV; Rate: 1 bolus; Site: right forearm; db 12:10 Drug: Promethazine IVP 12.5 mg Route: IVP; Site: right forearm; db 15:45 Follow up: Response: No adverse reaction db 12:12 Drug: NS 0.9% IV 250 ml Route: IV; Rate: bolus; Site: right forearm; db 15:45 Follow up: Response: No adverse reaction; IV Status: Completed infusion; IV Intake: db 250ml 12:15 Drug: Rocephin IV 1 grams Route: IV; Rate: calculated rate; Site: left forearm; db 15:45 Follow up: Response: No adverse reaction; IV Status: Completed infusion; IV Intake: 50mldb 13:35 Drug: NS 0.9% IV 1000 ml Route: IV; Rate: 1 bolus; Site: right forearm; db 15:45 Follow up: Response: No adverse reaction; IV Status: Completed infusion; IV Intake: db 1000ml Disposition Summary: 12/28/22 14:33 Discharge Ordered Location: Home snw Condition: Stable snw Diagnosis - UTI/ Urinary tract infection, site not specified snw - Nausea with vomiting, unspecified snw - Volume depletion, unspecified snw Followup: snw - With: Emergency Department - When: As needed - Reason: Worsening of condition Followup: snw - With: Private Physician - When: 2 - 3 days - Reason: Recheck today's complaints, Continuance of care, Re-evaluation by your physician Discharge Instructions: - Discharge Summary Sheet snw - Dehydration, Adult snw - Urinary Tract Infection, Adult snw - Nausea and Vomiting, Adult, [id number] snw - Rehydration, Adult snw Forms: - Work release form snw - Medication Reconciliation Form snw - Thank You Letter snw - Antibiotic Education snw - Prescription Opioid Use snw - Patient Portal Instructions snw - Leadership Thank You Letter snw Prescriptions: - promethazine 25 mg Oral Tablet - take 1 tablet by ORAL route every 6 hours As needed; 20 tablet; Refills: 0, snw Product Selection Permitted Signatures: Dispatcher [employer] EDMS Susan Odom FNP-C STAND IN-Csnw Magui Guzman RN RN Amira Benson RN RN db Corrections: (The following items were deleted from the chart) 12:05 12:02 The patient has been recently seen by a physician: The patient has been recently snw seen at the [facility] Emergency Department, this week, james
[2022-12-28 16:25] VITALS: TEMP 98.2
[2022-12-28 16:28] VITALS: BP 125/71; O2SAT 98
== END 2022-12-28 15:47 | disposition home or self-care (01) ==
LOC: ER 11:20
DX: N39.0 Urinary tract infection, site not specified (principal); E86.9 Volume depletion, unspecified
CPT/HCPCS: 85025; 36415; 86900; 86850; 86901; 83690; 80053; 99284; J2550; J7050; J7030 ×3; J0696

== ENCOUNTER → 2023-05-06 | Emergency (ER) | payer OTHER ==
[~2023-05-06] MED LIST: DIPHENHYDRAMINE 50 MG/ML VIAL ONE; HALOPERIDOL LACT 5 MG/ML INJ ONE; KETOROLAC 30 MG/ML INJ ONE; NA CHLORIDE 0.9% 1,000 ML ONE; ONDANSETRON 4 MG/2 ML VIAL ONE
--- OUTSIDE RECORDS SUMMARY | 2023-05-06 10:57 | XMS REPORT | Continuity of Care Document ---
Author Name Unknown Address [address] [facility] [place] [address] [facility] thconnect Address [address] [facility] [address] [place] [address] Care Team Providers Care Moshgiach Name Role Phone Anastacia Foster Primary Care Physician [phone] NICOLAS ARREOLA Attending Clinician Unavailable Nicolas Mensah Attending Clinician [phone] MICHELLE ORDONEZ Attending Clinician UnavailMichelle Sierra DO Attending Clinician [phone] CALVIN العلي Attending Clinician Unavailable Calvin العلي MD Attending Clinician [phone] Doctor Unassigned, [place] Attending Clinician U navailable Payers Payer Name Policy Type Policy Number Effective Date Expirati on Date Source R [id number] 2022 00:00:00 [facility] [id number] 2018 00:00:00 Problems Condition Name Condition Details Condition Category Status Onset Date Resolution Date Last Treatment Date Treating Clinician Comments Source Acute pain of right knee Acute pain of right knee Disease Active 2015-05 00:00: 00 [facility] Allergies, Adverse Reactions, Alerts Allergy Name Allergy Type Status Severity Reaction(s) Onset Date Inactive Date Treating Clinician Comments Source NO KNOWN ALLERGIE S Drug Class Active [facility] Social History Social Habit Start Date Stop Date Quantity Comments Source Sexual orientation U [facility] History of Social function 2022-10-13 00:00:00 2022-10-13 00:00:00 [facility] Exposure to SARS-CoV-2 (event) 2022-04-01 00:00:00 2022-04-11 09:14:00 Not sure [facility] Alcohol intake 2018-11-23 00:00:00 2018-11-23 00:00:00 0 /d [facility] Tobacco use and exposure 2017-09-03 00:00:00 2017-09-03 00:00:00 Smokeless tobacco non-user [facility] Sex Assigned At 2000 00:00:00 2000 00:00:00 [facility] Smoking Status Start Date Stop Date Source Never smoked tobacco [facility] Medications Ordered Medication Name Filled Medication Name Start Date Stop Date Current Medication? Ordering Clinician Indication Dosage Frequency Signature (SIG) Comments Components Source cefdinir (OMNICEF) capsule 300 mg 10-14 03:45: 00 10-14 03:58 :00 No 300mg 300 mg, Oral, ONCE, 1 dose, On Thu10/13/22 at 2245, OLGA LIDIA
Re ason for Anti-Infec tive: Empiric Therapy for Suspected Infection< br>Empiric Therapy Site: Urine
D uration of therapy: 72 hours [facility] butalbital- acetaminoph en-caff (ESGIC) 50-325-40 mg tablet 2 tablet 10-14 03:30: 00 10-14 02:56 :00 No 2{tbl} 2 tablet, Oral, ONCE, 1 dose, On Thu10/13/22 at 2230, Routine [facility] ondansetron (ZOFRAN-ODT ) disintegrat ing tablet 4 mg 10-14 03:15: 00 10-14 02:56 :00 No 4mg 4 mg, Oral, ONCE, 1 dose, On Thu10/13/22 at 2215, Routine [facility] ibuprofen (IBU) tablet 600 mg 10-14 02:45: 00 10-14 02:56 :00 No 600mg 600 mg, Oral, ONCE, 1 dose, On Thu10/13/22 at 2145, OLGA LIDIA [facility] ondansetron 4 mg disintegrat ing tablet 10-13 00:00: 00 Yes [id number] 4mg Take 1 tablet by mouth every 12 (twelve) hours as needed for Nausea and Vomiting (N/V). [facility] cefdinir 300 mg capsule 10-13 00:00: 00 10-21 04:59 :00 No [id number] 300mg Take 1 capsule by mouth every 12 (twelve) hours for 7 days. [facility] dexamethaso ne sod phos PF injection 10 mg 2021-05 11:45: 00 02-17 10:57 :00 No 10mg 10 mg, Intramuscu lar, ONCE, 1 dose, On Thu02/17/22 at 0645, 1 mL [facility] amoxicillin -clavulanat e 875-125 mg per tablet 2021-05 00:00: 00 02-28 04:59 :00 No [id number] 1{tbl} Take 1 tablet by mouth every 12 (twelve) hours for 10 days. [facility] loratadine 10 mg tablet 09-03 10:12: 12 Yes Take by mouth. [facility] Ibuprofen 200 mg capsule 09-03 10:12: 12 Yes 200mg Take 200 mg by mouth. [facility] loratadine 10 mg tablet 09-03 10:12: 12 Yes Take by mouth. [facility] Ibuprofen 200 mg capsule 09-03 10:12: 12 Yes 200mg Take 200 mg by mouth. [facility] loratadine 10 mg tablet 09-03 10:12: 12 Yes Take by mouth. [facility] Ibuprofen 200 mg capsule 09-03 10:12: 12 Yes 200mg Take 200 mg by mouth. [facility] loratadine 10 mg tablet 09-03 10:12: 12 Yes Take by mouth. [facility] Ibuprofen 200 mg capsule 09-03 10:12: 12 Yes 200mg Take 200 mg by mouth. [facility] levothyroxi ne 75 mcg tablet 00:00: 00 Yes 75ug Take 75 mcg by mouth. [facility] levothyroxi ne 75 mcg tablet 00:00: 00 Yes 75ug Take 75 mcg by mouth. [facility] levothyroxi ne 75 mcg tablet 00:00: 00 Yes 75ug Take 75 mcg by mouth. [facility] levothyroxi ne 75 mcg tablet 00:00: 00 Yes 75ug Take 75 mcg by mouth. [facility] Vital Signs Vital Name Observation Time Observation Value Comments S bridgetteyaakov Systolic blood pressure 2022-10-14 04:00:00 108 mm[Hg] [facility] Diastolic blood pressure 2022-10-14 04:00:00 93 mm[Hg] [facility] Heart rate 2022-10-14 04:00:00 73 /min [facility] Body temperature 2022-10-14 04:00:00 37.06 Lora [facility] Oxygen saturation in Arterial blood by Pulse oximetry 2022-10-14 04:00:00 97 /min [facility] Respiratory rate 2022-10-14 03:58:00 18 /min [facility] Body height 2022-10-14 02:14:00 172.7 cm [facility] Body weight 2022-10-14 02:14:00 117.935 kg [facility] BMI 2022-10-14 02:14:00 39.53 kg/m2 [facility] Systolic blood pressure 2022-04-11 15:13:00 149 mm[Hg] [facility] Diastolic blood pressure 2022-04-11 15:13:00 87 mm[Hg] [facility] Heart rate 2022-04-11 15:13:00 88 /min [facility] Body temperature 2022-04-11 15:13:00 37.11 Lora [facility] Respiratory rate 2022-04-11 15:13:00 14 /min [facility] Body height 2022-04-11 15:13:00 172.7 cm [facility] Body weight 2022-04-11 15:13:00 108.863 kg [facility] BMI 2022-04-11 15:13:00 36.49 kg/m2 [facility] Oxygen saturation in Arterial blood by Pulse oximetry 2022-04-11 15:13:00 98 /min [facility] Heart rate 2022-02-17 10:11:00 119 /min [facility] Body height 2022-02-17 10:08:00 172.7 cm [facility] Body weight 2022-02-17 10:08:00 111.131 kg [facility] BMI 2022-02-17 10:08:00 37.25 kg/m2 [facility] Oxygen saturation in Arterial blood by Pulse oximetry 2022-02-17 10:08:00 98 /min [facility] Systolic blood pressure 2022-02-17 10:08:00 141 mm[Hg] [facility] Diastolic blood pressure 2022-02-17 10:08:00 97 mm[Hg] [facility] Body temperature 2022-02-17 10:08:00 37.61 Lora [facility] Respiratory rate 2022-02-17 10:08:00 18 /min [facility] Procedures Procedure Date / Time Performed Performing Clinicia n Source URINALYSIS 2022-10-14 03:00:00 Nicolas Arreola [facility] POCT TEST 2022-10-14 02:55:00 Nicolas Arreola [facility] COVID-19 (ID NOW RAPID TESTING) 2022-10-14 02:54:00 Nicolas Arreola [facility] RAPID INFLUENZA A/B 2022-10-14 02:54:00 Nicolas Arreola [facility] CONSENT/REFUSAL FOR DIAGNOSIS AND TREATMENT 2022-10-14 02:10:01 Doctor Unassigned, [place] [facility] CONSENT/REFUSAL FOR DIAGNOSIS AND TREATMENT 2022-04-11 15:07:08 Doctor Unassigned, [place] [facility] RAPID STREP SCREEN FOR GROUP A 2022-02-17 10:14:00 Calvin العلي [facility] NOTICE OF PRIVACY PRACTICES 2022-02-17 10:05:06 Doctor Unassigned, [place] [facility] CONSENT/REFUSAL FOR DIAGNOSIS AND TREATMENT 2022-02-17 10:01:03 Doctor Unassigned, [place] [facility] Encounters Start Date/Time End Date/Time Encounter Type Admission Type Attending [facility] Facility Care Department Encounter ID Source 2022-10-13 21:18:00 2022-10-13 23:04:00 Emergency X GAETANO ARREOLAY [facility] ERT [id number] [facility] 2022-10-13 21:18:00 2022-10-13 23:04:00 Emergency Gaetano Arreolay B [facility] [id number] [facility] 2022-04-11 09:19:00 2022-04-11 09:37:00 Emergency X ALTAGRACIA ORDONEZRA [facility] ERT [id number] [facility] 2022-04-11 09:19:00 2022-04-11 09:37:00 Emergency DanteAltagraciara Ruiz [facility] [id number] [facility] 2022-02-17 05:14:00 2022-02-17 06:18:00 Emergency X CALVIN العلي [facility] ERT [id number] [facility] 2022-02-17 05:14:00 2022-02-17 06:18:00 Emergency Calvin العلي [facility] [id number] [facility] 2021-04-23 00:00:00 2021-04-23 00:00:00 Patient Secure Msg Doctor Unassigned, [place] [facility] [id number] [facility] Results Test Description Test Time Test Comments Results Result Co mments Source [facility]
[2023-05-06 11:45] LABS: Absolute Lymphocytes (CBC) 1.3 K/uL (0.7-4.9); Hematocrit 38.4 % (36.0-45.0); Lymphocytes % 9.7 % (15.3-44.8); MPV 8.2 fL (7.6-11.3); Platelets 343 thou/uL (152-406); RBC Red Blood Cell Count 4.58 M/uL (3.86-4.86)
[2023-05-06 11:57] LABS: Specific Gravity 1.032 (1.005-1.030)
[2023-05-06 12:05] LABS: Albumin 3.8 g/dL (3.4-5.0); Bilirubin Total 0.5 mg/dL (0.2-1.0); Potassium 3.6 mEq/L (3.5-5.1)
[2023-05-06 12:12] LABS: Specific Gravity > 1.030 (1.005-1.030); Urine Bacteria None Seen /HPF (<20); Urine Bilirubin NEGATIVE (Negative); Urine Blood 3+ (OVER) (Negative); Urine Clarity Turbid (Clear); Urine Color Yellow (Yellow); Urine Glucose NEGATIVE (Negative); Urine Mucus 4+ /HPF (None Seen); Urine Protein 2+ (Negative); Urine RBC >50 /HPF (None Seen); Urine Urobilinogen Normal (Normal)
[2023-05-06 12:21] LABS: SARS-COV-2 RT PCR NEGATIVE (NEGATIVE)
[2023-05-06 12:58] LABS: Blood Morphology Comment NOT SEEN (NOT SEEN); Platelet Estimate ADEQ; White Blood Cell Scan OK (OK)
--- NOTE | 2023-05-06 13:22 | ER ---
[facility] Name: Carmen Lea Age: 22 yrs Sex: Female : 2000 Arrival Date: 05/06/2023 Time: 10:55 Bed 15 Private MD: Diagnosis: UTI/ Urinary tract infection, site not specified Presentation: 05/06 11:12 Chief complaint: Lower abdominal pain and N/V sine this morning. Coronavirus screen: At this time, the client does not indicate any symptoms associated with coronavirus-19. Ebola Screen: No symptoms or risks identified at this time. Initial Sepsis Screen: Does the patient meet any 2 criteria? No. Patient's initial sepsis screen is negative. Does the patient have a suspected source of infection? No. Patient's initial sepsis screen is negative. Risk Assessment: Do you want to hurt yourself or someone else? Patient reports no desire to harm self or others. Onset of symptoms was May 06, 2023. 11:12 Method Of Arrival: Ambulatory 11:12 Acuity: LORENA 3 hb [employer]: 11:52 LMP 05/06/2023, unknown kd3 Historical: - Allergies: 11:16 "a pain medicine"; hb - Home Meds: 11:16 None [Active]; hb - PMHx: 11:16 None; hb - PSHx: 11:13 Appendectomy; hb - Immunization history:: Adult Immunizations up to date. - Social history:: Smoking status: Patient denies any tobacco usage or history of. Screenin:51 [facility] ED Fall Risk Assessment (Adult) History of falling in the last 3 months, kd3 including since admission No falls in past 3 months (0 pts) Confusion or Disorientation No (0 pts) Intoxicated or Sedated No (0 pts) Impaired Gait No (0 pts) Mobility Assist Device Used No (0 pt) Altered Elimination No (0 pt) Score/Fall Risk Level 0 - 2 = Low Risk Maintained a safe environment. Abuse screen: Denies threats or abuse. Denies injuries from another. Nutritional screening: No deficits noted. Tuberculosis screening: No symptoms or risk factors identified. Assessment: 11:50 General: Appears uncomfortable, Behavior is calm, cooperative. Pain: Complains of pain kd3 in abdomen. Cardiovascular: Capillary refill < 3 seconds. Respiratory: Airway is patent Trachea midline Respiratory effort is even, unlabored. GI: Bowel sounds present X 4 quads. Abdomen is tender to palpation in right upper quadrant and left upper quadrant. Vital Signs: 11:12 BP 132 / 99; Pulse 68; Resp 16; Temp 97.2; Pulse Ox 98% on R/A; Weight 108.86 kg; hb Height 5 ft. 9 in. ; Pain 8/10; 14:06 BP 126 / 77; Pulse 69; Resp 17; Pulse Ox 99% on R/A; kd3 11:12 Body Mass Index 35.44 (108.86 kg, 175.26 cm) hb 11:12 Pain Scale: Adult hb ED Course: 10:57 Patient arrived in ED. mr 10:58 Roger Dudley MD is Attending Physician. ec2 11:13 Triage completed. hb 11:13 Arm band placed on. hb 11:23 Mercy Golden, RN is Primary Nurse. kd3 11:37 Test, Urine Sent. kd3 11:37 UAM Sent. kd3 11:37 CMP Sent. kd3 11:37 CBC with Diff Sent. kd3 11:37 COVID-19/FLU A+B/RSV Sent. kd3 11:37 Inserted saline lock: 20 gauge in right antecubital area, using aseptic technique. zm Blood collected. 11:51 Patient has correct armband on for positive identification. Provided Education on: . kd3 14:07 No provider procedures requiring assistance completed. IV discontinued, intact, kd3 bleeding controlled, No redness/swelling at site. Pressure dressing applied. Administered Medications: 11:37 Drug: NS 0.9% IV 1000 ml IV at 1 bolus Per protocol; 1000 mL bolus Route: IV; Rate: 1 kd3 bolus; Site: right antecubital; 14:07 Follow up: IV Status: Completed infusion; IV Intake: 1000ml kd3 11:37 Drug: Ondansetron IVP 4 mg IVP once; over 2 minutes Route: IVP; Site: right antecubital;kd3 13:13 Follow up: Response: No adverse reaction; Nausea unchanged kd3 11:47 Drug: diphenhydrAMINE IVP 25 mg IVP once Route: IVP; Site: right antecubital; kd3 13:13 Follow up: Response: No adverse reaction kd3 11:47 Drug: Ketorolac IVP 15 mg IVP once Route: IVP; Site: right antecubital; kd3 13:13 Follow up: Response: No adverse reaction; Pain is decreased kd3 12:45 Drug: Haloperidol IVP 5 mg IVP once Route: IVP; Site: right antecubital; kd3 13:12 Follow up: Response: Nausea is decreased kd3 Medication: 11:52 VIS not applicable for this client. kd3 Intake: 14:07 IV: 1000ml; Total: 1000ml. kd3 Outcome: 13:22 Discharge ordered by . ec2 14:07 Discharged to home ambulatory, kd3 14:07 Condition: stable 14:07 Discharge instructions given to patient, Instructed on discharge instructions, follow up and referral plans. Demonstrated understanding of instructions, follow-up care, Prescriptions given X 2, 14:08 Patient left the ED. kd3 Signatures: Alice Cooper, Reg Reg mr Magui Guzman, BOO HADDAD Mercy Golden RN RN kd3 Cheryl Sharp Edwin, MD MD ec2
--- NOTE | 2023-05-06 13:22 | EDPHYS ---
Physician Documentation [facility] Name: Carmen Lea Age: 22 yrs Sex: Female : 2000 Arrival Date: 05/06/2023 Time: 10:55 Bed 15 Private MD: ED Physician Roger Dudley HPI: 05/06 11:59 This 22 yrs old Female presents to ER via Ambulatory with complaints of ec2 Abdominal Cramping, Nausea/Vomiting. 11:59 Patient arrives today due to concern for lower abdominal cramping along with nausea and ec2 vomiting. Patient reports that she recently started her period yesterday and states that her symptoms are persistent to the point where she cannot eat and drink. Patient reports some nausea and vomiting. Patient reports a previous history of appendectomy. Denies any urinary complaints. Reports no significant cough or cold symptoms. Denies any difficulty breathing, denies any chest pain.. 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 - Social history:: Smoking status: Patient denies any tobacco usage or history of. ROS: 11:59 Constitutional: as per hpi ec2 Exam: 11:59 Constitutional: GEN: NAD Head: atraumatic Eyes: EOMI Ears: External ears are ec2 normal. CV: regular rate LUNGS: no respiratory distress, no wheezes, no rales, no rhonchi ABD: non-distended, soft, no guarding, nontender SKIN: no evidence of rashes MSK: no evidence of trauma NEURO: moves all extremities equally Vital Signs: 11:12 BP 132 / 99; Pulse 68; Resp 16; Temp 97.2; Pulse Ox 98% on R/A; Weight 108.86 kg; hb Height 5 ft. 9 in. ; Pain 8/10; 14:06 BP 126 / 77; Pulse 69; Resp 17; Pulse Ox 99% on R/A; kd3 11:12 Body Mass Index 35.44 (108.86 kg, 175.26 cm) hb 11:12 Pain Scale: Adult hb MDM: 11:16 Patient medically screened. ec2 11:59 Data reviewed: vital signs. ED course: Patient arrives today for complaints of ec2 abdominal pain with associated nausea and vomiting. Examination remarkable for well-appearing nontoxic individual who has a reassuring abdominal examination. Will obtain lab work, urine studies, viral swabs. Currently considering processes such as gastroenteritis, UTI, viral infection.. 13:19 ED course: CBC shows slight leukocytosis at 12.9. Metabolic profile with appropriate ec2 electrolytes and renal function. Urine is infectious appearing with leuk esterase and WBCs present. Negative testing. Negative COVID testing. Negative influenza and RSV testing. . 13:22 ED course: On reassessment patient reports improvement in symptoms. Will discharge home ec2 with prescription for antibiotics and antiemetics. Return precautions given.. 05/06 11:17 Order name: CBC with Diff; Complete Time: 13:18 ec2 05/06 11:17 Order name: CMP; Complete Time: 13:18 ec2 05/06 11:17 Order name: UAM; Complete Time: 13:18 ec2 05/06 11:17 Order name: Test, Urine; Complete Time: 13:18 ec2 05/06 11:17 Order name: COVID-19/FLU A+B/RSV; Complete Time: 13:18 ec2 05/06 12:16 Order name: Urine Culture EDMS 05/06 12:58 Order name: CBC Smear Scan; Complete Time: 13:18 EDMS Administered Medications: 11:37 Drug: NS 0.9% IV 1000 ml IV at 1 bolus Per protocol; 1000 mL bolus Route: IV; Rate: 1 kd3 bolus; Site: right antecubital; 14:07 Follow up: IV Status: Completed infusion; IV Intake: 1000ml kd3 11:37 Drug: Ondansetron IVP 4 mg IVP once; over 2 minutes Route: IVP; Site: right antecubital;kd3 13:13 Follow up: Response: No adverse reaction; Nausea unchanged kd3 11:47 Drug: diphenhydrAMINE IVP 25 mg IVP once Route: IVP; Site: right antecubital; kd3 13:13 Follow up: Response: No adverse reaction kd3 11:47 Drug: Ketorolac IVP 15 mg IVP once Route: IVP; Site: right antecubital; kd3 13:13 Follow up: Response: No adverse reaction; Pain is decreased kd3 12:45 Drug: Haloperidol IVP 5 mg IVP once Route: IVP; Site: right antecubital; kd3 13:12 Follow up: Response: Nausea is decreased kd3 Disposition Summary: 05/06/23 13:22 Discharge Ordered Notes: Location: Home ec2 Condition: Stable ec2 Diagnosis - UTI/ Urinary tract infection, site not specified ec2 Followup: ec2 - With: Private Physician - When: - Reason: Recheck today's complaints Discharge Instructions: - Discharge Summary Sheet ec2 - Urinary Tract Infection, Adult ec2 Forms: - Medication Reconciliation Form ec2 - Thank You Letter ec2 - Antibiotic Education ec2 - Prescription Opioid Use ec2 - Patient Portal Instructions ec2 - Leadership Thank You Letter ec2 Prescriptions: - Cephalexin 500 mg Oral capsule - take 1 capsule ORAL route every 12 hours for 7 days; 14 capsule; Refills: 0, ec2 Product Selection Permitted - Compazine 10 mg Oral Tablet - take 1 tablet ORAL route every 8 hours As needed; 20 tablet; Refills: 0, ec2 Product Selection Permitted Signatures: Dispatcher [employer] Magui Madera RN RN Mercy Golden RN RN kd3 Roger Dudley MD MD ec2
[2023-05-06 14:34] VITALS: TEMP 97.2
[2023-05-06 14:42] VITALS: BP 126/77; O2SAT 99
== END ==
LOC: ER 10:55
DX: N39.0 Urinary tract infection, site not specified (principal); Z11.52 Encounter for screening for COVID-19
CPT/HCPCS: 96361; 87088; 85025; 81001; 87086; 36415; 81025; 80053; 0241U; 96375; 96374; 99284; J1630; J1200; J2405; J7030

== ENCOUNTER → 2023-06-11 | Emergency (ER) | payer OTHER ==
[~2023-06-11] MED LIST changes: -DIPHENHYDRAMINE 50 MG/ML VIAL ONE; +FENTANYL CITR 100 MCG/2 ML ONE; -HALOPERIDOL LACT 5 MG/ML INJ ONE; -KETOROLAC 30 MG/ML INJ ONE; +METOCLOPRAMIDE 10 MG/2mL INJ ONE
--- OUTSIDE RECORDS SUMMARY | 2023-06-11 13:22 | XMS REPORT | Continuity of Care Document ---
Author Name Unknown Address [address] [facility] [place] [address] [facility] thconnect Address [address] [facility] [address] [place] [address] Care Team Providers Care Screwmaker Automatic Name Role Phone Anastacia Foster Primary Care Physician [phone] NICOLAS ARREOLA Attending Clinician Unavailable Nicolas Mensah Attending Clinician [phone] MICHELLE ORDONEZ Attending Clinician UnavailMichelle Sierra DO Attending Clinician [phone] CALVIN العلي Attending Clinician Unavailable Calvin العلي MD Attending Clinician [phone] Doctor Unassigned, [facility] Attending Clinician U navailable Payers Payer Name Policy Type Policy Number Effective Date Expirati on Date Source [id number] 2022 00:00:00 [facility] [id number] 2018 00:00:00 Problems Condition Name Condition Details Condition Category Status Onset Date Resolution Date Last Treatment Date Treating Clinician Comments Source Acute pain of right knee Acute pain of right knee Disease Active 2015-05 00:00: 00 [facility] Allergies, Adverse Reactions, Alerts Allergy Name Allergy Type Status Severity Reaction(s) Onset Date Inactive Date Treating Clinician Comments Source NO KNOWN ALLERGIE S Drug Class Active [facility] Social History Social Habit Start Date Stop Date Quantity Comments Source Sexual orientation U [facility] History of Social function 2022-10-13 00:00:00 2022-10-13 00:00:00 [facility] Exposure to SARS-CoV-2 (event) 2022-04-01 00:00:00 2022-04-11 09:14:00 Not sure [facility] Alcohol intake 2018-11-23 00:00:00 2018-11-23 00:00:00 0 /d [facility] Tobacco use and exposure 2017-09-03 00:00:00 2017-09-03 00:00:00 Smokeless tobacco non-user [facility] Sex Assigned At 2000 00:00:00 2000 00:00:00 [facility] Smoking Status Start Date Stop Date Source Never smoked tobacco [facility] Medications Ordered Medication Name Filled Medication [...] Urine
D uration of therapy: [address] [facility] butalbital- acetaminoph en-caff (ESGIC) 50-325-40 mg tablet 2 tablet 10-14 03:30: 00 10-14 02:56 :00 No 2{tbl} 2 tablet, Oral, ONCE, 1 dose, On Thu10/13/22 at 2230, Routine [facility] ondansetron (ZOFRAN-ODT ) disintegrat ing tablet 4 mg 10-14 03:15: 00 10-14 02:56 :00 No 4mg 4 mg, Oral, ONCE, 1 dose, On Thu10/13/22 at 2215, Routine [facility] ibuprofen (IBU) tablet 600 mg 10-14 02:45: 00 10-14 02:56 :00 No 600mg 600 mg, Oral, ONCE, 1 dose, On Thu10/13/22 at 2145, OLGA LIDIA [facility] ondansetron 4 mg disintegrat ing tablet 10-13 00:00: 00 Yes [id number] 4mg Take 1 tablet by mouth every 12 (twelve) hours as needed for Nausea and Vomiting (N/V). [facility] cefdinir 300 mg capsule 10-13 00:00: 00 10-21 04:59 :00 No [id number] 300mg Take 1 capsule by mouth every 12 (twelve) hours for [address] [facility] dexamethaso ne sod phos PF injection 10 mg 2021-05 11:45: 00 02-17 10:57 :00 No 10mg 10 mg, Intramuscu lar, ONCE, 1 dose, On Thu02/17/22 at 0645, [address] [facility] amoxicillin -clavulanat e 875-125 mg per tablet 2021-05 00:00: 00 02-28 04:59 :00 No [id number] 1{tbl} Take 1 tablet by mouth every 12 (twelve) hours for [address] [facility] loratadine 10 mg tablet 09-03 10:12: 12 Yes Take by mouth. [facility] Ibuprofen 200 mg capsule 09-03 10:12: 12 Yes 200mg Take [address] [facility] loratadine 10 mg tablet 09-03 10:12: 12 Yes Take by mouth. [facility] Ibuprofen 200 mg capsule 09-03 10:12: 12 Yes 200mg Take [address] [facility] loratadine 10 mg tablet 09-03 10:12: 12 Yes Take by mouth. [facility] Ibuprofen 200 mg capsule 09-03 10:12: 12 Yes 200mg Take [address] [facility] loratadine 10 mg tablet 09-03 10:12: 12 Yes Take by mouth. [facility] Ibuprofen 200 mg capsule 09-03 10:12: 12 Yes 200mg Take [address] [facility] levothyroxi ne 75 mcg tablet 00:00: 00 Yes 75ug Take [address] [facility] levothyroxi ne 75 mcg tablet 00:00: 00 Yes 75ug Take [address] [facility] levothyroxi ne 75 mcg tablet 00:00: 00 Yes 75ug Take [address] [facility] levothyroxi ne 75 mcg tablet 00:00: 00 Yes 75ug Take [address] [facility] Vital Signs Vital Name Observation Time Observation Value Comments S bridgetteyaakov Systolic blood pressure 2022-10-14 04:00:00 108 mm[Hg] [facility] Diastolic blood pressure 2022-10-14 04:00:00 93 mm[Hg] [facility] Heart rate 2022-10-14 04:00:00 73 /min [facility] Body temperature 2022-10-14 04:00:00 37.06 [facility] Oxygen saturation in Arterial blood by Pulse oximetry 2022-10-14 04:00:00 97 /min [facility] Respiratory rate 2022-10-14 03:58:00 18 /min [facility] Body height 2022-10-14 02:14:00 172.7 cm [facility] Body weight 2022-10-14 02:14:00 117.935 kg [facility] BMI 2022-10-14 02:14:00 39.53 kg/m2 [facility] Systolic blood pressure 2022-04-11 15:13:00 149 mm[Hg] [facility] Diastolic blood pressure 2022-04-11 15:13:00 87 mm[Hg] [facility] Heart rate 2022-04-11 15:13:00 88 /min [facility] Body temperature 2022-04-11 15:13:00 37.11 [facility] Respiratory rate 2022-04-11 15:13:00 14 /min [facility] Body height 2022-04-11 15:13:00 172.7 cm [facility] Body weight 2022-04-11 15:13:00 108.863 kg [facility] BMI 2022-04-11 15:13:00 36.49 kg/m2 [facility] Oxygen saturation in Arterial blood by Pulse oximetry 2022-04-11 15:13:00 98 /min [facility] Heart rate 2022-02-17 10:11:00 119 /min [facility] Body height 2022-02-17 10:08:00 172.7 cm [facility] Body weight 2022-02-17 10:08:00 111.131 kg [facility] BMI 2022-02-17 10:08:00 37.25 kg/m2 [facility] Oxygen saturation in Arterial blood by Pulse oximetry 2022-02-17 10:08:00 98 /min [facility] Systolic blood pressure 2022-02-17 10:08:00 141 mm[Hg] [facility] Diastolic blood pressure 2022-02-17 10:08:00 97 mm[Hg] [facility] Body temperature 2022-02-17 10:08:00 37.61 [facility] Respiratory rate 2022-02-17 10:08:00 18 /min [facility] Procedures Procedure Date / Time Performed Performing Clinicia n Source URINALYSIS 2022-10-14 03:00:00 Nicolas Arreola [facility] POCT TEST 2022-10-14 02:55:00 Nicolas Arreola [facility] COVID-19 (ID NOW RAPID TESTING) 2022-10-14 02:54:00 Nicolas Arreola [facility] RAPID INFLUENZA A/B 2022-10-14 02:54:00 Nicolas Arreola [facility] CONSENT/REFUSAL FOR DIAGNOSIS AND TREATMENT 2022-10-14 02:10:01 Doctor Unassigned, [facility] CONSENT/REFUSAL FOR DIAGNOSIS AND TREATMENT 2022-04-11 15:07:08 Doctor Unassigned, [facility] RAPID STREP SCREEN FOR GROUP A 2022-02-17 10:14:00 Calvin العلي [facility] NOTICE OF PRIVACY PRACTICES 2022-02-17 10:05:06 Doctor Unassigned, [facility] CONSENT/REFUSAL FOR DIAGNOSIS AND TREATMENT 2022-02-17 10:01:03 Doctor Unassigned, [facility] Encounters Start Date/Time End Date/Time Encounter Type Admission Type Attending [facility] Facility Care Department Encounter ID Source 2022-10-13 21:18:00 2022-10-13 23:04:00 Emergency X GAETANO ARREOLAY [facility] ERT [id number] [facility] 2022-10-13 21:18:00 2022-10-13 23:04:00 Emergency Gaetano Arreolay [facility] [id number] [facility] 2022-04-11 09:19:00 2022-04-11 09:37:00 Emergency X ALTAGRACIA ORDONEZRA [facility] ERT [id number] [facility] 2022-04-11 09:19:00 2022-04-11 09:37:00 Emergency DanteAltagraciara Ruiz [facility] [id number] [facility] 2022-02-17 05:14:00 2022-02-17 06:18:00 Emergency X CALVIN العلي [facility] ERT [id number] [facility] 2022-02-17 05:14:00 2022-02-17 06:18:00 Emergency Calvin العلي [facility] [id number] [facility] 2021-04-23 00:00:00 2021-04-23 00:00:00 Patient Secure Msg Doctor Unassigned, [facility] [id number] [facility] Results Test Description Test Time Test Comments Results Result Co mments Source [facility]
[2023-06-11 14:15] LABS: Absolute Lymphocytes (CBC) 0.9 K/uL (0.7-4.9); Hematocrit 39.2 % (36.0-45.0); Lymphocytes % 6.4 % (15.3-44.8); MCV 84.6 fL (80-100); MPV 8.3 fL (7.6-11.3); Platelets 322 thou/uL (152-406); RBC Red Blood Cell Count 4.63 M/uL (3.86-4.86)
[2023-06-11 14:34] LABS: Albumin 4.2 g/dL (3.4-5.0); Bilirubin Total 0.4 mg/dL (0.2-1.0); Protein, Total 8.6 g/dL (6.4-8.2)
[2023-06-11 14:41] LABS: SARS-CoV-2 Antigen Rapid Res Negative (Negative)
[2023-06-11 14:41] LABS: Specific Gravity 1.029 (1.005-1.030)
[2023-06-11 14:44] LABS: Specific Gravity 1.029 (1.005-1.030); Urine Bacteria None Seen /HPF (<20); Urine Bilirubin NEGATIVE (Negative); Urine Blood Negative (Negative); Urine Clarity Turbid (Clear); Urine Color Light-Yellow (Yellow); Urine Glucose TRACE (Negative); Urine Mucus 1+ /HPF (None Seen); Urine Protein TRACE (Negative); Urine RBC <5 /HPF (None Seen); Urine Urobilinogen Normal (Normal); Urine pH 7.5 (5.0-7.0)
[2023-06-11 14:45] LABS: Blood Morphology Comment NOT SEEN (NOT SEEN); Platelet Estimate ADEQ; White Blood Cell Scan OK (OK)
--- NOTE | 2023-06-11 15:54 | RAD REPORT ---
EXAM DESCRIPTION: CT - Abdomen Pelvis W Contrast - 06/11/2023 2:55 pm CLINICAL HISTORY: ABD PAIN COMPARISON: Abdomen Pelvis W Contrast dated 12/26/2022; Abdomen Pelvis W Contrast dated 08/27/2020 ; Abdomen Pelvis W Contrast dated 01/11/2019; CT ABD PELVIS W CONTRAST dated 07/01/2007 TECHNIQUE: Thin cut axial CT imaging of the abdomen and pelvis was performed following intravenous a dministration of 100 mL Isovue 300. Multiplanar reformats were generated and reviewed. All CT scans are performed using dose optimization technique as appropriate and may include automated exposure control or mA/KV adjustment according to patient size. FINDINGS: No suspicious findings in the lung bases. The liver, spleen, adrenal glands, and pancreas show no suspicious findings. Gallbladder and biliary tree are also without suspicious finding. Symmetric renal function is seen with no hydronephrosis or suspicious renal mass. No dilated bowel loops or bowel wall thickening. No free air, free fluid or inflammatory stranding. N o hernia, mass or bulky lymphadenopathy. The urinary bladder is decompressed limiting evaluation. No suspicious bony findings. IMPRESSION: No acute intra-abdominal process.
--- NOTE | 2023-06-11 17:59 | EDPHYS ---
Physician Documentation [facility] Name: Carmen Lea Age: 23 yrs Sex: Female : 2000 Arrival Date: 06/11/2023 Time: 13:19 Bed 5 Private MD: ED Physician Thad Burton HPI: 06/11 13:42 This 23 yrs old Female presents to ER via Ambulatory with complaints of sb4 Nausea/Vomiting/Diarrhea. 13:42 The patient presents to the emergency department with nausea, vomiting, diarrhea, sb4 abdominal pain. Onset: The symptoms/episode began/occurred this morning. Possible causes: unknown. The symptoms are aggravated by food , The symptoms are alleviated by nothing. Associated signs and symptoms: Pertinent positives: abdominal pain, diarrhea, dysuria, nausea, vomiting, Pertinent negatives: fever, GI bleeding, hematuria, vaginal discharge. The patient has not experienced similar symptoms in the past. The patient has not recently seen a physician. 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 - Social history:: Smoking status: Patient denies any tobacco usage or history of. ROS: 13:42 Constitutional: Negative for fever, chills, and weight loss, sb4 13:42 Respiratory: Positive for 13:42 Abdomen/GI: Positive for abdominal pain, nausea, vomiting, and diarrhea, 13:42 All other systems are negative, Exam: 13:42 Head/Face: Normocephalic, atraumatic. Eyes: Extra-ocular motions intact. Periorbital sb4 areas with no swelling, redness, or edema. Cardiovascular: Regular rate and rhythm with a normal S1 and S2. Respiratory: Lungs have equal breath sounds bilaterally, clear to auscultation and percussion. No rales, rhonchi or wheezes noted. No increased work of breathing, no retractions or nasal flaring. Skin: Warm, dry with normal turgor. Normal color with no rashes, no lesions, and no evidence of cellulitis. MS/ Extremity: Pulses equal, no cyanosis. Neurovascular intact. Full, normal range of motion. Neuro: Awake and alert, GCS 15, oriented to person, place, time, and situation. Motor strength 5/5 in all extremities. Sensory grossly intact. 13:42 Constitutional: The patient appears alert, awake, uncomfortable, 13:42 Abdomen/GI: Inspection: abdomen appears normal, Bowel sounds: diminished, in the left sb4 lower quadrant, Palpation: abdomen is soft and non-tender, Vital Signs: 13:36 BP 121 / 93; Pulse 73; Resp 18; Temp 98.3; Pulse Ox 96% ; Weight 108.86 kg; Height 5 db ft. 8 in. ; Pain 8/10; 15:00 BP 117 / 63; Pulse 76; Resp 18; Pulse Ox 100% ; cp4 16:00 BP 121 / 67; Pulse 69; Resp 18; Pulse Ox 100% ; cp4 13:36 Body Mass Index 36.49 (108.86 kg, 172.72 cm) db 13:36 Pain Scale: Adult db MDM: 13:36 Patient medically screened. sb4 13:42 Differential diagnosis: gastroenteritis, colitis, UTI. sb4 17:32 Data reviewed: vital signs, nurses notes, lab test result(s), radiologic studies, and sb4 as a result, I will discharge patient. Consideration of Admission/Observation Escalation of care including admission/observation considered. Counseling: I had a detailed discussion with the patient and/or guardian regarding the historical points, exam findings, and any diagnostic results supporting the discharge/admit diagnosis, lab results, radiology results, to return to the emergency department if symptoms worsen or persist or if there are any questions or concerns that arise at home. 06/11 13:42 Order name: CBC with Diff; Complete Time: 14:46 sb4 06/11 13:42 Order name: CMP; Complete Time: 14:36 sb4 06/11 13:42 Order name: Lipase; Complete Time: 14:36 sb4 06/11 13:42 Order name: Test, Urine; Complete Time: 14:46 sb4 06/11 13:42 Order name: Urinalysis w/ reflexes; Complete Time: 14:46 sb4 06/11 13:45 Order name: SARS RAPID; Complete Time: 14:41 sb4 06/11 13:45 Order name: Flu; Complete Time: 14:47 sb4 06/11 14:20 Order name: CBC Smear Scan; Complete Time: 14:46 EDMS 06/11 13:42 Order name: CT Abd/Pelvis - IV Contrast Only; Complete Time: 15:56 sb4 06/11 13:42 Order name: IV Saline Lock; Complete Time: 14:01 sb4 06/11 13:42 Order name: Labs collected and sent; Complete Time: 14:00 sb4 Administered Medications: 14:01 Drug: NS 0.9% IV 1000 ml IV at 1 bolus Per protocol; 1000 mL bolus Route: IV; Rate: 1 cp4 bolus; Site: right antecubital; 14:01 Drug: Ondansetron IVP 4 mg IVP once; over 2 minutes Route: IVP; Site: right antecubital;cp4 17:34 Follow up: Response: No adverse reaction cp4 14:47 Drug: metoCLOPramide IVP 10 mg IVP once; over 1 to 2 minutes Route: IVP; Site: right cp4 antecubital; 17:34 Follow up: Response: No adverse reaction cp4 17:33 Drug: fentaNYL (PF) IVP 25 mcg IVP once Route: IVP; Site: right antecubital; cp4 Disposition Summary: 06/11/23 17:58 Discharge Ordered Notes: Location: Home sb4 Problem: new sb4 Symptoms: have improved sb4 Condition: Stable sb4 Diagnosis - Noninfective gastroenteritis and colitis, unspecified sb4 Followup: sb4 - With: Emergency Department - When: As needed - Reason: Trouble breathing, Worsening of condition Discharge Instructions: - Discharge Summary Sheet sb4 - Viral Gastroenteritis, Adult sb4 Forms: - Work release form sb4 - Medication Reconciliation Form sb4 - Thank You Letter sb4 - Antibiotic Education sb4 - Prescription Opioid Use sb4 - Patient Portal Instructions sb4 - Leadership Thank You Letter sb4 Prescriptions: - ondansetron 8 mg Oral Tablet,disintegrating - take 1 tablet ORAL route every 12 hours; 12 tablet; Refills: 0, Product sb4 Selection Permitted Signatures: Dispatcher [employer] Amira Chatterjee RN RN Eloise Torrez PA-C PA-C sb4 Beatriz Alvarez cp4 Corrections: (The following items were deleted from the chart) 13:43 13:42 Head/Face: Normocephalic, atraumatic. Eyes: Extra-ocular motions intact. sb4 Periorbital areas with no swelling, redness, or edema. Cardiovascular: Regular rate and rhythm with a normal S1 and S2. Respiratory: Lungs have equal breath sounds bilaterally, clear to auscultation and percussion. No rales, rhonchi or wheezes noted. No increased work of breathing, no retractions or nasal flaring. Abdomen/GI: Soft, non-tender, no distension. Skin: Warm, dry with normal turgor. Normal color with no rashes, no lesions, and no evidence of cellulitis. MS/ Extremity: Pulses equal, no cyanosis. Neurovascular intact. Full, normal range of motion. Neuro: Awake and alert, GCS 15, oriented to person, place, time, and situation. Motor strength 5/5 in all extremities. Sensory grossly intact. sb4
--- NOTE | 2023-06-11 17:59 | ER ---
Nurse's Notes [facility] Name: Carmen Lea Age: 23 yrs Sex: Female : 2000 Arrival Date: 06/11/2023 Time: 13:19 Bed 5 Private MD: Diagnosis: Noninfective gastroenteritis and colitis, unspecified Presentation: 06/11 13:36 Chief complaint: Patient states: STATES WOKE UP WITH THIS AM WITH N/V AND DIARRHEA WITH db ABD PAIN. Coronavirus screen: Client denies travel out of the [place] in the last 14 days. At this time, the client does not indicate any symptoms associated with coronavirus-19. Ebola Screen: Patient negative for fever greater than or equal to 101.5 degrees Fahrenheit, and additional compatible Ebola Virus Disease symptoms Patient denies exposure to infectious person. Patient denies travel to an Ebola-affected area in the 21 days before illness onset. No symptoms or risks identified at this time. Initial Sepsis Screen: Does the patient meet any 2 criteria? No. Patient's initial sepsis screen is negative. Does the patient have a suspected source of infection? No. Patient's initial sepsis screen is negative. Risk Assessment: Do you want to hurt yourself or someone else? Patient reports no desire to harm self or others. Onset of symptoms was June 11, 2023. 13:36 Method Of Arrival: Ambulatory db 13:36 Acuity: LORENA 3 db Triage Assessment: 13:38 General: Appears in no apparent distress. comfortable, Behavior is calm, cooperative. db Pain: Complains of pain in abdomen. Neuro: Level of Consciousness is awake, alert, obeys commands, Oriented to person, place, time, situation. GI: Reports lower abdominal pain, diarrhea, nausea, vomiting. 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 - Social history:: Smoking status: Patient denies any tobacco usage or history of. Screenin:06 [facility] ED Fall Risk Assessment (Adult) History of falling in the last 3 months, cp4 including since admission No falls in past 3 months (0 pts) Confusion or Disorientation No (0 pts) Intoxicated or Sedated No (0 pts) Impaired Gait No (0 pts) Mobility Assist Device Used No (0 pt) Altered Elimination No (0 pt) Score/Fall Risk Level 0 - 2 = Low Risk Oriented to surroundings, Maintained a safe environment, Educated pt \T\ family on fall prevention, incl call for assistance when getting out of bed, Assessed \T\ reinforced patient's understanding of fall precautions, Provided non-skid footwear, Hourly rounding (assess needs \T\ fall precautionary measures) done. Abuse screen: Denies threats or abuse. Nutritional screening: No deficits noted. Tuberculosis screening: No symptoms or risk factors identified. Assessment: 18:06 General: Appears in no apparent distress. Behavior is calm, cooperative, appropriate cp4 for age. GI: Reports diarrhea, nausea, vomiting. Vital Signs: 13:36 BP 121 / 93; Pulse 73; Resp 18; Temp 98.3; Pulse Ox 96% ; Weight 108.86 kg; Height 5 db ft. 8 in. ; Pain 8/10; 15:00 BP 117 / 63; Pulse 76; Resp 18; Pulse Ox 100% ; cp4 16:00 BP 121 / 67; Pulse 69; Resp 18; Pulse Ox 100% ; cp4 13:36 Body Mass Index 36.49 (108.86 kg, 172.72 cm) db 13:36 Pain Scale: Adult db ED Course: 13:22 Patient arrived in ED. kj1 13:25 Eloise Brewer PA-C is PHCP. sb4 13:25 Thad Burton MD is Attending Physician. sb4 13:38 Triage completed. db 13:39 Arm band placed on. db 13:43 Beatriz Alvarez is Primary Nurse. cp4 13:45 Inserted saline lock: 20 gauge in right antecubital area, using aseptic technique. cp4 Blood collected. 14:55 CT Abd/Pelvis - IV Contrast Only In Process Unspecified. EDMS 18:06 Bed in low position. Call light in reach. Side rails up X 1. Provided Education on: cp4 gastroenteritis. 18:06 No provider procedures requiring assistance completed. intact, bleeding controlled, No cp4 redness/swelling at site. Pressure dressing applied. Administered Medications: 14:01 Drug: NS 0.9% IV 1000 ml IV at 1 bolus Per protocol; 1000 mL bolus Route: IV; Rate: 1 cp4 bolus; Site: right antecubital; 14:01 Drug: Ondansetron IVP 4 mg IVP once; over 2 minutes Route: IVP; Site: right antecubital;cp4 17:34 Follow up: Response: No adverse reaction cp4 14:47 Drug: metoCLOPramide IVP 10 mg IVP once; over 1 to 2 minutes Route: IVP; Site: right cp4 antecubital; 17:34 Follow up: Response: No adverse reaction cp4 17:33 Drug: fentaNYL (PF) IVP 25 mcg IVP once Route: IVP; Site: right antecubital; cp4 Medication: 18:06 VIS not applicable for this client. cp4 Outcome: 13:45 Discharged to home ambulatory, cp4 13:45 Condition: stable 13:45 Discharge instructions given to patient, Instructed on discharge instructions, follow up and referral plans. medication usage, Demonstrated understanding of instructions, follow-up care, medications, Prescriptions given X 1, 17:58 Discharge ordered by . sb4 18:08 Patient left the ED. cp4 Signatures: Dispatcher [employer] EDMS Kate Guillaume kj1 Amira Benson, RN RN Eloise Torrez, PA-C PA-C sb4 Beatriz Alvarez cp4
[2023-06-11 19:49] VITALS: TEMP 98.3
[2023-06-11 20:08] VITALS: BP 121/67; O2SAT 100
== END ==
LOC: ER 13:19
DX: K52.9 Noninfective gastroenteritis and colitis, unspecified (principal); Z11.52 Encounter for screening for COVID-19; Z28.310 Unvaccinated for COVID-19
CPT/HCPCS: 85025; 81001; 36415; 81025; 83690; 80053; 87804 ×2; 74177; 87811; Q9967; J2765; J3010; J2405; J7030

== ENCOUNTER 2024-08-05 19:56 | Emergency (ER) | payer OTHER ==
--- OUTSIDE RECORDS SUMMARY | 2024-08-05 19:59 | XMS REPORT | Continuity of Care Document ---
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 Name Role Phone CristianAnastacia Primary Care Physician [phone] Doctor Unassigned, [place] Attending Clinician U navailable GILBERT ARREOLA Attending Clinician Unavailable Gilbert Mensah Attending Clinician [phone] MICHELLE ORDONEZ Attending Clinician UnavailMichelle Sierra DO Attending Clinician [phone] CALVIN العلي Attending Clinician Unavailable Calvin العلي MD Attending Clinician [phone] Doctor Unassigned, [place] Attending Clinician U navailable Payers Payer Name Policy Type Policy Number Effective Date Expirati on Date Source [id number] 2022 00:00:00 [facility] [id number] 2018 00:00:00 Problems Condition Name Condition Details Condition Category Status Onset Date Resolution Date Last Treatment Date Treating Clinician Comments Source Acute pain of right knee Acute pain of right knee Disease Active 2015-05 00:00: 00 [facility] Allergies, Adverse Reactions, Alerts Allergy Name Allergy Type Status Severity Reaction(s) Onset Date Inactive Date Treating Clinician Comments Source NO KNOWN ALLERGIE S Drug Class Active [facility] Social History Social Habit Start Date Stop Date Quantity Comments Source Sexual orientation U [facility] History of Social function 2022-10-13 00:00:00 2022-10-13 00:00:00 [facility] Exposure to SARS-CoV-2 (event) 2022-04-01 00:00:00 2022-04-11 09:14:00 Not sure [facility] Alcohol intake 2018-11-23 00:00:00 2018-11-23 00:00:00 0 /d [facility] Tobacco use and exposure 2017-09-03 00:00:00 2017-09-03 00:00:00 Smokeless tobacco non-user [facility] Alcoholic beverage intake 2017-07-08 00:00:00 2017-07-08 00:00:00 0 /d [facility] Sex assigned at 2000 00:00:00 2000 00:00:00 [facility] Smoking Status Start Date Stop Date Source Never smoked tobacco [facility] Medications Ordered Medication Name Filled Medication Name [...] Urine
D uration of therapy: 72 hours [facility] butalbital- acetaminoph en-caff (ESGIC) 50-325-40 mg tablet 2 tablet 10-14 03:30: 00 10-14 02:56 :00 No 2{tbl} 2 tablet, Oral, ONCE, 1 dose, On Thu10/13/22 at 2230, Routine [facility] ondansetron (ZOFRAN-ODT ) disintegrat ing tablet 4 mg 10-14 03:15: 00 10-14 02:56 :00 No 4mg 4 mg, Oral, ONCE, 1 dose, On Thu10/13/22 at 2215, Routine [facility] ibuprofen (IBU) tablet 600 mg 10-14 02:45: 00 10-14 02:56 :00 No 600mg 600 mg, Oral, ONCE, 1 dose, On Thu10/13/22 at 2145, OLGA LIDIA [facility] ondansetron 4 mg disintegrat ing tablet 10-13 00:00: 00 Yes [id number] 4mg Take 1 tablet by mouth every 12 (twelve) hours as needed for Nausea and Vomiting (N/V). [facility] cefdinir 300 mg capsule 10-13 00:00: 00 10-21 04:59 :00 No [id number] 300mg Take 1 capsule by mouth every 12 (twelve) hours for 7 days. [facility] dexamethaso ne sod phos PF injection 10 mg 2021-05 11:45: 00 02-17 10:57 :00 No 10mg 10 mg, Intramuscu lar, ONCE, 1 dose, On Thu02/17/22 at 0645, 1 mL [facility] amoxicillin -clavulanat e 875-125 mg per tablet 2021-05 00:00: 00 02-28 04:59 :00 No [id number] 1{tbl} Take 1 tablet by mouth every 12 (twelve) hours for 10 days. [facility] loratadine 10 mg tablet 09-03 10:12: 12 Yes Take by mouth. [facility] Ibuprofen 200 mg capsule 09-03 10:12: 12 Yes 200mg Take 200 mg by mouth. [facility] levothyroxi ne 75 mcg tablet 00:00: 00 Yes 75ug Take 75 mcg by mouth. [facility] Vital Signs Vital Name Observation Time Observation Value Comments S david Systolic blood pressure 2022-10-14 04:00:00 108 mm[Hg] [facility] Diastolic blood pressure 2022-10-14 04:00:00 93 mm[Hg] [facility] Heart rate 2022-10-14 04:00:00 73 /min [facility] Body temperature 2022-10-14 04:00:00 37.06 Lora [facility] Oxygen saturation in Arterial blood by Pulse oximetry 2022-10-14 04:00:00 97 /min [facility] Respiratory rate 2022-10-14 03:58:00 18 /min [facility] Body height 2022-10-14 02:14:00 172.7 cm [facility] Body weight 2022-10-14 02:14:00 117.935 kg [facility] BMI 2022-10-14 02:14:00 39.53 kg/m2 [facility] Systolic blood pressure 2022-04-11 15:13:00 149 mm[Hg] [facility] Diastolic blood pressure 2022-04-11 15:13:00 87 mm[Hg] [facility] Heart rate 2022-04-11 15:13:00 88 /min [facility] Body temperature 2022-04-11 15:13:00 37.11 Lora [facility] Respiratory rate 2022-04-11 15:13:00 14 /min [facility] Body height 2022-04-11 15:13:00 172.7 cm [facility] Body weight 2022-04-11 15:13:00 108.863 kg [facility] BMI 2022-04-11 15:13:00 36.49 kg/m2 [facility] Oxygen saturation in Arterial blood by Pulse oximetry 2022-04-11 15:13:00 98 /min [facility] Heart rate 2022-02-17 10:11:00 119 /min [facility] Systolic blood pressure 2022-02-17 10:08:00 141 mm[Hg] [facility] Diastolic blood pressure 2022-02-17 10:08:00 97 mm[Hg] [facility] Body temperature 2022-02-17 10:08:00 37.61 Lora [facility] Respiratory rate 2022-02-17 10:08:00 18 /min [facility] Body height 2022-02-17 10:08:00 172.7 cm [facility] Body weight 2022-02-17 10:08:00 111.131 kg [facility] BMI 2022-02-17 10:08:00 37.25 kg/m2 [facility] Oxygen saturation in Arterial blood by Pulse oximetry 2022-02-17 10:08:00 98 /min [place] [facility] Procedures Procedure Date / Time Performed Performing Clinician Source URINALYSIS 2022-10-14 03:00:00 Gilbert Arreola [facility] POCT TEST 2022-10-14 02:55:00 Gilbert Arreola [facility] COVID-19 (ID NOW RAPID TESTING) 2022-10-14 02:54:00 Gilbert Arreola [facility] RAPID INFLUENZA A/B 2022-10-14 02:54:00 Gilbert Arreola [facility] CONSENT/REFUSAL FOR DIAGNOSIS AND TREATMENT 2022-10-14 02:10:01 Doctor Unassigned, [place] [facility] CONSENT/REFUSAL FOR DIAGNOSIS AND TREATMENT 2022-04-11 15:07:08 Doctor Unassigned, [place] [facility] RAPID STREP SCREEN FOR GROUP A 2022-02-17 10:14:00 Calvin العلي [facility] NOTICE OF PRIVACY PRACTICES 2022-02-17 10:05:06 Doctor Unassigned, [place] [facility] CONSENT/REFUSAL FOR DIAGNOSIS AND TREATMENT 2022-02-17 10:01:03 Doctor Unassigned, [place] [facility] DME/SUPPLY JUSTIFICATION 2017-07-08 06:01:00 Doc tor Unassigned, [place] [facility] Encounters Start Date/Time End Date/Time Encounter Type Admission Type Attending Clinicians Care Facility Care Department Encounter ID Source 2017-07-08 00:00:00 2024-06-25 03:25:26 Orders Only Doctor Unassigned, [place] Doctor Unassigned, [place] [facility] [id number] [facility] 2022-10-13 21:18:00 2022-10-13 23:04:00 Emergency X GILBERT ARREOLA [facility] ERT [id number] [facility] 2022-10-13 21:18:00 2022-10-13 23:04:00 Emergency Gilbert Arreola [facility] [id number] [facility] 2022-04-11 09:19:00 2022-04-11 09:37:00 Emergency MEJIA DOYLERA [facility] ERT [id number] [facility] 2022-04-11 09:19:00 2022-04-11 09:37:00 Emergency Mejia Ordonezra Ruiz [facility] [id number] [facility] 2022-02-17 05:14:00 2022-02-17 06:18:00 Emergency X CALVIN العلي [facility] ERT [id number] [facility] 2022-02-17 05:14:00 2022-02-17 06:18:00 Emergency Calvin العلي C [facility] [id number] [facility] 2021-04-23 00:00:00 2021-04-23 00:00:00 Patient Secure Msg Doctor Unassigned, [place] [facility] [id number] [facility] Results Test Description Test Time Test Comments Results Result Co mments Source [facility]
[2024-08-05] MEDS ORDERED: PROMETHAZINE INJ 25 MG/ML AMP ONE (20:28)
[2024-08-05 21:27] LABS: Sqamous Epithelial <5 /HPF (None Seen); Urine Bacteria None Seen /HPF (<20); Urine Bilirubin NEGATIVE (Negative); Urine Blood Trace (Negative); Urine Clarity Extremely Turbid (Clear); Urine Color Light-Orange (Yellow); Urine Crystals Unidentified Many /HPF (None Seen); Urine Culture Reflex Order REFLEXED; Urine Glucose TRACE (Negative); Urine Ketones 1+ (Negative); Urine Micro Reflex YN NO BILL MICROSCOPIC; Urine Mucus 3+ /HPF (None Seen); Urine Nitrite NEGATIVE (Negative); Urine Protein 1+ (Negative); Urine RBC <5 /HPF (None Seen); Urine Urobilinogen Normal (Normal); Urine WBC >50 /HPF (<5); Urine WBC Clump Moderate /HPF (None Seen); Urine Yeast (Budding) Few /HPF (None Seen); Urine pH 5.5 (5.0-7.0)
[2024-08-05] MEDS ORDERED: ONDANSETRON 4 MG/2 ML VIAL ONE (21:39)
[2024-08-05] MEDS ORDERED: NA CHLORIDE 0.9% 1,000 ML ONE (21:46)
[2024-08-05 21:52] LABS: Absolute Basophils 0.1 K/uL (0-0.5); Absolute Monocytes 0.6 K/uL (0.1-1.3); Absolute Neutrophil 14.8 K/uL (1.8-8.0); Basophils % 0.3 % (0-1.3); Eosinophils % 0.2 % (0-4.4); Hematocrit 41.5 % (36.0-45.0); Hemoglobin 13.9 g/dL (12.0-15.0); Lymphocytes % 6.3 % (15.3-44.8); MCH 28.4 pg (27.0-35.0); MCHC 33.5 g/dL (32.0-36.0); MCV 84.8 fL (80-100); MPV 8.2 fL (7.6-11.3); Monocytes % 3.3 % (3.3-12.3); Neutrophils % 89.9 % (41.7-73.7); Platelets 358 thou/uL (152-406); RBC Red Blood Cell Count 4.89 M/uL (3.86-4.86)
[2024-08-05 22:00] LABS: Albumin 4.4 g/dL (3.4-5.0); Anion Gap 8.8 mEq/L (5.0-15.0); Bilirubin Total 0.6 mg/dL (0.2-1.0); Globulin 4.3 g/dL (2.3-3.5); Potassium 3.8 mEq/L (3.5-5.1); Protein, Total 8.7 g/dL (6.4-8.2)
--- NOTE | 2024-08-05 22:32 | RAD REPORT ---
Abdomen Exam Limited: 08/05/2024 10:14 PM CLINICAL HISTORY: ABD PAIN STUDY: Limited right upper quadrant ultrasound of abdomen. COMPARISON: 06/11/2023 FINDINGS: Liver: Limited evaluation but grossly unremarkable. Bile ducts: No intrahepatic or extrahepatic biliary ductal dilatation. Common bile duct measures 3 mm. Gallbladder: Normal. IMPRESSION: Unremarkable exam.
[2024-08-05 22:47] LABS: Band Neutrophils 7 % (0-1); Blood Morphology Comment NOT SEEN (NOT SEEN); Differential Total Cells Count 100; Lymphocytes 4 % (15-42); Platelet Estimate ADEQ; Segmented Neutrophils 89 % (40-80)
[2024-08-05 22:50] LABS: Monocytes 0 % (0-10)
[2024-08-05] MEDS ORDERED: CEFTRIAXONE 1000 MG/VIAL ONE (23:40)
[2024-08-05] MEDS ORDERED: MORPHINE 4 MG/ML SYR ONE (23:41)
--- NOTE | 2024-08-06 00:32 | RAD REPORT ---
EXAM DESCRIPTION: CT ABDOMEN PELVIS WITH IV CONTRAST 08/06/2024 12:19 AM CDT CLINICAL HISTORY: 24 years, Female, Flank pain. COMPARISON: US Abdomen 08/06/[address] Abdomen Pelvis 06/11/2023. PROCEDURE: Initial noncontrast axial images through the abdomen and pelvis were generated utilizing 5 mm by poly nieves at 5 mm interval reconstruction. Subsequent contrast images of the abdomen and pelvis were performed utilizing 5 mm slice thickness at 5 mm interval reconstruction from the lung bases to the i schial tuberosities after the administration of IV contrast. In addition multiplanar reformats in the coronal and sagittal plane were obtained and reviewed. An individualized dose optimization technique, Automated Exposure Control, was utilized for the perfo rmed procedure. FINDINGS: Lung bases: The lung bases demonstrate to be clear. Calcified granuloma posterior segment left lower lobe Liver: The liver demonstrated presence of decreased attenuation corresponding to mild fatty infiltrat ion. Gallbladder: The gallbladder demonstrate to be normal. Adrenal glands: The adrenal glands demonstrate to be normal. Pancreas: The pancreas demonstrate to be normal. Spleen: The spleen demonstrate to be within normal limits. Kidneys: The kidneys demonstrate normal uptake of contrast media. There is no evidence for nephroli thiasis and/or hydronephrosis. GI: Grossly the unopacified stomach, small bowel and large bowel demonstrate to be within normal limi ts. No evidence for bowel dilatation and/or free air. Surgical clips within the right lower quadrant/cecum correspond to previous appendectomy. The left-sided colon demonstrate to be decompress ed with no gross abnormalities. : The urinary bladder demonstrate to be unremarkable. Genitalia: The uterus demonstrate to be within normal limits. There are normal adnexal structures. Abdominal aorta: The aorta demonstrate to be within normal limits. Retroperitoneum: There is no retroperitoneal lymphadenopathy. There is no evidence for ascites and/or abnormal fluid collections. Bones: The bony structures demonstrate to be within normal limits. No evidence for compression deform ity and/or significant skeletal lesions. Soft tissues: The soft tissues demonstrate to be unremarkable. IMPRESSION: Mild fatty infiltration of the liver. Status post appendectomy. No evidence for nephrolithiasis and/or hydronephrosis. No evidence for acute intra-abdominal process. Electronically signed by: Aniceto Barriga MD 08/06/2024 12:28 AM CDT RP Due to temporary technical issues with the PACS/Sudae reporting system, reports are being tang d by the in-house radiologist without review as a courtesy to ensure prompt reporting the interpreting radiologist is fully responsible for the content of the report. Transcribed Date/Time: 08/06/2024 12:32 AM
--- NOTE | 2024-08-06 01:31 | ER ---
Nurse's Notes [facility] Name: Carmen Lea Age: 24 yrs Sex: Female : 2000 Arrival Date: 08/05/2024 Time: 19:56 Bed DX1 Private MD: Diagnosis: Nausea with vomiting, unspecified;Dorsalgia, unspecified;UTI/ Urinary tract infection, site not specified Presentation: 08/05 20:13 Chief complaint: Patient states: N?V since this morning. Coronavirus screen: At this bm8 time, the client does not indicate any symptoms associated with coronavirus-19. Ebola Screen: Patient negative for fever greater than or equal to 101.5 degrees Fahrenheit, and additional compatible Ebola Virus Disease symptoms Patient denies exposure to infectious person. Patient denies travel to an Ebola-affected area in the 21 days before illness onset. No symptoms or risks identified at this time. Initial Sepsis Screen: Does the patient meet any 2 criteria? No. Patient's initial sepsis screen is negative. Does the patient have a suspected source of infection? No. Patient's initial sepsis screen is negative. Risk Assessment: Do you want to hurt yourself or someone else? Patient reports no desire to harm self or others. Onset of symptoms was August 05, 2024 at 08:00. 20:13 Method Of Arrival: Ambulatory bm8 20:13 Acuity: LORENA 3 bm8 Triage Assessment: 20:14 General: Appears in no apparent distress. comfortable, Behavior is calm, cooperative, bm8 appropriate for age. Pain: Complains of pain in abdomen Pain currently is 8 out of 10 on a pain scale. EENT: No deficits noted. No signs and/or symptoms were reported regarding the EENT system. Neuro: No deficits noted. Level of Consciousness is awake, alert, obeys commands, Oriented to person, place, time, situation, Appropriate for age. GI: Reports nausea, Pain is 8 out of 10 on a pain scale. vomiting. 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 - Infectious Disease History:: Denies. - Social history:: Smoking status: Patient denies any tobacco usage or history of. Screenin/29 01:37 [facility] ED Fall Risk Assessment (Adult) History of falling in the last 3 months, lg3 including since admission No falls in past 3 months (0 pts) Confusion or Disorientation No (0 pts) Intoxicated or Sedated No (0 pts) Impaired Gait No (0 pts) Mobility Assist Device Used No (0 pt) Altered Elimination No (0 pt) Score/Fall Risk Level 0 - 2 = Low Risk Oriented to surroundings, Maintained a safe environment, Educated pt \T\ family on fall prevention, incl call for assistance when getting out of bed, Assessed \T\ reinforced patient's understanding of fall precautions. Abuse screen: Denies threats or abuse. Denies injuries from another. Nutritional screening: No deficits noted. Tuberculosis screening: No symptoms or risk factors identified. Assessment: 08/05 22:32 General: Appears in no apparent distress. uncomfortable, Behavior is calm, cooperative, bm8 appropriate for age. Pain: Complains of pain in abdomen Pain currently is 8 out of 10 on a pain scale. Neuro: No deficits noted. Level of Consciousness is awake, alert, obeys commands, Oriented to person, place, time, situation, Appropriate for age. Cardiovascular: Denies chest pain, Heart tones S1 S2 present Capillary refill < 3 seconds in bilateral fingers Patient's skin is warm and dry. Respiratory: Airway is patent Respiratory effort is even, unlabored, Respiratory pattern is regular, symmetrical, Breath sounds are clear bilaterally. GI: Abdomen is obese, Bowel sounds present X 4 quads. Reports lower abdominal pain, upper abdominal pain, Pain is 8 out of 10 on a pain scale. 08/06 01:37 Reassessment: Patient appears in no apparent distress at this time. No changes from lg3 previously documented assessment. Patient and/or family updated on plan of care and expected duration. Pain level reassessed. Patient is alert, oriented x 3, equal unlabored respirations, skin warm/dry/pink. Patient states feeling better. Patient states symptoms have improved. Vital Signs: 08/05 20:13 BP 149 / 74; Pulse 87; Resp 18; Temp 98.8; Pulse Ox 98% ; Weight 108.86 kg; Height 5 bm8 ft. 8 in. ; Pain 8/; 22:32 BP 133 / 74; Pulse 82; Resp 17; Temp 98.8; Pulse Ox 100% ; Pain 8/10; bm8 08/06 01:37 BP 124 / 77; Pulse 76; Resp 17 S; Pulse Ox 99% on R/A; lg3 08/05 20:13 Body Mass Index 36.49 (108.86 kg, 172.72 cm) bm8 08/05 20:13 Pain Scale: Adult bm8 22:32 Pain Scale: Adult bm8 Keli Coma Score: 08/05 22:32 Eye Response: spontaneous(4). Motor Response: obeys commands(6). Verbal Response: bm8 oriented(5). Total: 15. ED Course: 19:57 Patient arrived in ED. rg4 20:05 Thad Tyler PA is PHCP. cp 20:05 Thad Burton MD is Attending Physician. cp 20:14 Triage completed. bm8 20:14 Arm band placed on right wrist. bm8 21:17 Urine collected: clean catch specimen, cloudy. bm8 21:37 Initial lab(s) drawn, by il, sent to lab. Inserted saline lock: 20 gauge in left lg3 antecubital area, using aseptic technique. Blood collected. Flushed with 10 mL NS. 22:23 US Abdomen Limited In Process Unspecified. EDMS 23:47 Beena Broussard, RN is Primary Nurse. kj2 23:55 CT Abd/Pelvis- W/WO Contrast In Process Unspecified. EDMS 08/06 01:37 Patient has correct armband on for positive identification. lg3 01:37 No provider procedures requiring assistance completed. lg3 01:37 IV discontinued, intact, bleeding controlled, No redness/swelling at site. Pressure lg3 dressing applied. Administered Medications: 08/05 20:31 Drug: Promethazine IM 25 mg IM once Route: IM; Site: right deltoid; bm8 21:17 Follow up: Response: No adverse reaction bm8 21:40 Drug: Ondansetron IVP 4 mg IVP once; over 2 minutes Route: IVP; Site: left antecubital; lg3 08/06 01:40 Follow up: Response: No adverse reaction lg3 08/05 22:50 Drug: NS 0.9% IV 1000 ml IV at 1000 ml once; to be given as a bolus over 60 minutes lg3 Route: IV; Rate: 1000 ml; Site: left antecubital; 08/06 01:39 Follow up: Response: No adverse reaction; IV Status: Completed infusion; IV Intake: lg3 1000ml 08/05 22:51 Drug: Ondansetron IVP 4 mg IVP once; over 2 minutes, may repeat 20 minutes Route: IVP; lg3 Site: left antecubital; 08/06 01:39 Follow up: Response: No adverse reaction lg3 08/05 23:46 Drug: morphine IVP or IV 4 mg IVP once over 4 mins Route: IVP; Infused Over: 4 mins; bm8 Site: left antecubital; 08/06 01:39 Follow up: Response: No adverse reaction; Marked relief of symptoms lg3 08/05 23:46 Drug: Rocephin IV 1 grams IV at calculated rate once; Given slow IV push per pharmacy bm8 instructions Route: IV; Rate: calculated rate; Site: left antecubital; 08/06 01:39 Follow up: Response: No adverse reaction; IV Status: Completed infusion; IV Intake: [id number] Medication: 01:37 VIS not applicable for this client. lg3 Intake: 01:39 IV: 10ml; Total: 10ml. lg3 01:39 IV: 1000ml; Total: 1010ml. lg3 Outcome: 01:30 Discharge ordered by MD. cp 01:37 Discharged to home ambulatory, lg3 01:37 Condition: stable 01:37 Discharge instructions given to patient, Instructed on discharge instructions, follow up and referral plans. medication usage, Demonstrated understanding of instructions, follow-up care, medications, Prescriptions given X 3, 01:40 Patient left the ED. lg3 Signatures: Dispatcher [employer] EDMS Thad Tyler PA PA cp Garcia, Rubi rg4 Padmini Rendon RN RN lg3 Preston Goss, RN RN bm8 Beena Broussard, BOO RN kj2 Corrections: (The following items were deleted from the chart) 01:39 01:37 Patient did not have IV access during this emergency room visit. lg3 lg3
--- NOTE | 2024-08-06 01:31 | EDPHYS ---
Physician Documentation [facility] Name: Carmen Lea Age: 24 yrs Sex: Female : 2000 Arrival Date: 08/05/2024 Time: 19:56 Bed DX1 Private MD: ED Physician Thad Burton HPI: 08/05 20:35 This 24 yrs old Female presents to ER via Ambulatory with complaints of Nausea. cp 20:35 The patient presents to the emergency department with nausea, with "dry heaves", cp abdominal pain. Onset: The symptoms/episode began/occurred today. Associated signs and symptoms: Pertinent positives: vomiting, Pertinent negatives: constipation, diarrhea, fever. Severity of symptoms: in the emergency department the symptoms are unchanged despite home interventions. 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 - Infectious Disease History:: Denies. - Social history:: Smoking status: Patient denies any tobacco usage or history of. ROS: 20:40 Constitutional: Positive for poor PO intake, Negative for body aches, chills, fever, cp 20:40 Cardiovascular: Negative for chest pain, edema, palpitations, cp 20:40 Respiratory: Negative for cough, shortness of breath, wheezing, 20:40 Abdomen/GI: Positive for nausea and vomiting, Negative for diarrhea, constipation, hematemesis, 20:40 Back: Positive for pain at rest, 20:40 Neuro: Negative for altered mental status, 20:40 All other systems are negative, Exam: 20:45 Constitutional: The patient appears in no acute distress, alert, awake, non-toxic, well cp developed, well nourished, obese, uncomfortable, 20:45 Head/Face: Normocephalic, atraumatic. cp 20:45 Eyes: Periorbital structures: appear normal, Conjunctiva: normal, no exudate, no injection, Sclera: no appreciated abnormality, Lids and lashes: appear normal, bilaterally, 20:45 ENT: External ear(s): are unremarkable, Nose: is normal, Mouth: Lips: moist, Oral mucosa: moist, Posterior pharynx: Airway: no evidence of obstruction, patent, 20:45 Neck: ROM/movement: is normal, is supple, without pain, no range of motions limitations, 20:45 Chest/axilla: Inspection: normal, 20:45 Cardiovascular: Rate: normal, Rhythm: regular, 20:45 Respiratory: the patient does not display signs of respiratory distress, Respirations: normal, no use of accessory muscles, no retractions, labored breathing, is not present, Breath sounds: are clear throughout, no decreased breath sounds, no stridor, no wheezing, 20:45 Abdomen/GI: Inspection: abdomen appears normal, Bowel sounds: active, all quadrants, Palpation: soft, in all quadrants, moderate abdominal tenderness, in the right upper quadrant and left upper quadrant, rebound tenderness, is not appreciated, involuntary guarding, is not appreciated, 20:45 Back: pain, that is moderate, of the low back area, 20:45 Neuro: Orientation: to person, place \\T\\ time. Mentation: is normal, Motor: moves all fours, strength is normal, Sensation: is normal, Vital Signs: 20:13 BP 149 / 74; Pulse 87; Resp 18; Temp 98.8; Pulse Ox 98% ; Weight 108.86 kg; Height 5 bm8 ft. 8 in. ; Pain 8/10; 22:32 BP 133 / 74; Pulse 82; Resp 17; Temp 98.8; Pulse Ox 100% ; Pain 8/10; bm8 08/06 01:37 BP 124 / 77; Pulse 76; Resp 17 S; Pulse Ox 99% on R/A; lg3 08/05 20:13 Body Mass Index 36.49 (108.86 kg, 172.72 cm) bm8 08/05 20:13 Pain Scale: Adult bm8 22:32 Pain Scale: Adult bm8 Keli Coma Score: 08/05 22:32 Eye Response: spontaneous(4). Motor Response: obeys commands(6). Verbal Response: bm8 oriented(5). Total: 15. MDM: 20:17 Medical Screening Exam initiated cp 08/06 01:30 Data reviewed: vital signs, nurses notes, lab test result(s), radiologic studies, CT cp scan, ultrasound, and as a result, I will discharge patient. 01:30 Differential diagnosis: Nonspecific abd pain, gastritis, cholecystitis, pancreatitis, cp appendicitis, viral gastroenteritis, gastroenteritis. I considered the following discharge prescriptions or medication management in the emergency department Medications were administered in the Emergency Department. See MAR. Response to treatment: the patient's symptoms have markedly improved after treatment, patient is well hydrated. and as a result, I will discharge patient. Special discussion: Based on the patient's Hx, exam, and Dx evaluation, there is no indication for emergent surgery or inpatient Tx. It is understood by the patient/guardian that if the Sx's persist or worsen they need to return immediately for re-evaluation. 08/05 20:28 Order name: Urinalysis W/Microscopic; Complete Time: 23:35 cp 08/05 20:28 Order name: Test, Urine; Complete Time: 23:35 cp 08/05 21:24 Order name: CBC with Diff; Complete Time: 23:35 cp 08/05 21:24 Order name: CMP; Complete Time: 23:35 cp 08/05 21:24 Order name: Lipase; Complete Time: 23:35 cp 08/05 21:32 Order name: Urine Culture EDMS 08/05 22:13 Order name: Manual Differential; Complete Time: 23:35 EDMS 08/05 21:39 Order name: US Abdomen Limited; Complete Time: 23:35 cp 08/05 23:35 Order name: CT Abd/Pelvis- W/WO Contrast cp 08/06 01:00 Interpretation: Reviewed. cp 08/05 21:24 Order name: IV Saline Lock; Complete Time: 21:48 cp 08/05 21:24 Order name: Labs collected and sent; Complete Time: 21:48 cp 08/06 01:00 Order name: PO challenge; Complete Time: 01:40 cp Administered Medications: 08/05 20:31 Drug: Promethazine IM 25 mg IM once Route: IM; Site: right deltoid; bm8 21:17 Follow up: Response: No adverse reaction bm8 21:40 Drug: Ondansetron IVP 4 mg IVP once; over 2 minutes Route: IVP; Site: left antecubital; lg3 08/06 01:40 Follow up: Response: No adverse reaction lg3 08/05 22:50 Drug: NS 0.9% IV 1000 ml IV at 1000 ml once; to be given as a bolus over 60 minutes lg3 Route: IV; Rate: 1000 ml; Site: left antecubital; 08/06 01:39 Follow up: Response: No adverse reaction; IV Status: Completed infusion; IV Intake: lg3 1000ml 08/05 22:51 Drug: Ondansetron IVP 4 mg IVP once; over 2 minutes, may repeat 20 minutes Route: IVP; lg3 Site: left antecubital; 08/06 01:39 Follow up: Response: No adverse reaction 3 08/05 23:46 Drug: morphine IVP or IV 4 mg IVP once over 4 mins Route: IVP; Infused Over: 4 mins; bm8 Site: left antecubital; 08/06 01:39 Follow up: Response: No adverse reaction; Marked relief of symptoms 3 08/05 23:46 Drug: Rocephin IV 1 grams IV at calculated rate once; Given slow IV push per pharmacy bm8 instructions Route: IV; Rate: calculated rate; Site: left antecubital; 08/06 01:39 Follow up: Response: No adverse reaction; IV Status: Completed infusion; IV Intake: [id number] Disposition: 08/07 01:15 Chart complete. cp Disposition Summary: 08/06/24 01:30 Discharge Ordered Notes: Location: Home cp Problem: new cp Symptoms: have improved cp Condition: Stable cp Diagnosis - Nausea with vomiting, unspecified cp - Dorsalgia, unspecified cp - UTI/ Urinary tract infection, site not specified cp Followup: cp - With: Emergency Department - When: As needed - Reason: Worsening of condition Discharge Instructions: - Discharge Summary Sheet cp - Acute Back Pain, Adult cp - Nausea and Vomiting, Adult cp - Urinary Tract Infection, Adult cp - Form - Excuse from Work, School, or Physical Activity cp Forms: - Work release form sp - Medication Reconciliation Form cp - Antibiotic Education cp - Prescription Opioid Use cp - Patient Portal Instructions cp - Leadership Thank You Letter cp Prescriptions: - cefpodoxime 200 mg Oral tablet - take 1 tablet ORAL route every 12 hours for 7 days with food; 14 tablet; cp Refills: 0, Product Selection Permitted - methocarbamol 750 mg Oral tablet - take 1 tablet ORAL route 3 times per day; 30 tablet; Refills: 0, Product cp Selection Permitted - ondansetron 8 mg Oral Tablet,disintegrating - take 1 tablet ORAL route every 12 hours; 20 tablet; Refills: 0, Product cp Selection Permitted Addendum: 08/09/2024 15:38 Co-signature as Attending Physician, Thad Burton MD I agree with the assessment and c hua plan of care. Signatures: Dispatcher [employer] Thad Orta MD MD cha Page, Corey, Padmini Barton cp, RN RN lg3 Preston Goss RN RN bm8
[2024-08-06 02:05] VITALS: TEMP 98.8
[2024-08-06 02:07] VITALS: BP 124/77; O2SAT 99
== END 2024-08-06 01:40 | disposition home or self-care (01) ==
LOC: ER 19:56
DX: N39.0 Urinary tract infection, site not specified (principal); M54.9 Dorsalgia, unspecified
CPT/HCPCS: 87088; 85025; 81001; 87086; 36415; 81025; 83690; 80053; 74178; 76705; Q9967; J2550; J2405; J7030; J0696; 96361; 96365; 96366; 96372; 96375; 99284